=== PATIENT | male | born 1960 | race Caucasian/White ===

== ENCOUNTER 2019-08-17 11:19 | Emergency (ER) | payer MEDICAID, SELFPAY ==
[2019-08-17 11:24] VITALS: BP 144/81; PULSE 80; RESP 18; TEMP 36.5; O2SAT 98; BMI 21.6
[2019-08-17 11:34] VITALS: PULSE 86
--- NOTE | 2019-08-17 11:46 | PC.NURSE ---
POLO Scott in room with patient performing assessment. Plan to order xray to rule out osteomyelitits and then address pain. Patient verbalized understanding.
--- NOTE | 2019-08-17 11:48 | XRR_ITS ---
PROCEDURE INFORMATION: Exam: XR Left Ankle Exam date and time: 08/17/2019 12:14 PM Age: 58 years old Clinical indication: Prior surgery; Surgery type: Left ankle surgery with plate and screws. 5 weeks ago; Patient HX: C/O pain lt ankle laterally. Has cast on TECHNIQUE: Imaging protocol: XR Left ankle. Views: 3 or more views. COMPARISON: CR Ankle 3 views, LEFT* [id number] 06/17/2019 7:01 AM FINDINGS: Bones/joints: Overlying cast obscures fine bony detail. Status post ORIF of distal left fibular fracture with improved fracture alignment. Soft tissues: Unremarkable. XR/XR ankle LT min 3V* [id number] IMPRESSION: Status post ORIF of distal left fibular fracture with improved fracture alignment.
--- NOTE | 2019-08-17 11:49 | W.ED.EXTPRO ---
HPI - Extremity Problem General: Chief complaint: Extremity Problem,Nontraumatic Stated complaint: L foot pain, patient comes in for left ankle pain, patient reports he is to see orthopedist Monday in [place] for recheck on fracture repair, Patient reports running out of medication on Monday but could not get refill due to not able to go to [place]. Patient appears well. Patient appears in no distress. Time Seen by Provider: 08/17/19 11:37 Review of Systems General: Reports: 10 or more systems reviewed and unremarkable except in HPI and below Musc: Reports: joint pain (left ankle) PFSH ED PFSH: Statuses (acute, chronic, etc) shown below reflect problem list status as previously entered and may not be historically accurate Social History Smoking and tobacco status: current every day smoker Physical Exam Const: COMMON NORMALS: no apparent distress and oriented x3 GENERAL APPEARANCE: cooperative HENMT: COMMON NORMALS: normocephalic, external ears normal, EAC's normal, TM's normal bilaterally and external nose normal HEAD & SCALP: normal to inspection and normocephalic FACE & SINUS: normal facial exam NOSE: external nose normal GENERAL EAR: hearing grossly impaired EXTERNAL EAR: Yes external ears normal EXTERNAL AUDITORY CANAL: EAC's normal TYMPANIC MEMBRANE: TM's normal bilaterally MOUTH: oral and palatal mucosa normal THROAT: posterior oropharynx normal Eye: COMMON NORMALS: PERRL and EOMs intact bilaterally PUPIL: Yes PERRL Neck/C-Spine: COMMON NORMALS: full ROM and no lymphadenopathy Lymph: LYMPHATIC: no lymphedema noted Chest: COMMONS NORMALS: inspection of chest normal and palpation of chest normal Resp: COMMON NORMALS: normal respiratory effort and clear to auscultation bilaterally AUSCULTATION: clear to auscultation bilaterally Cardio: COMMON NORMALS: regular rate and regular rhythm RATE: regular rate RHYTHM: regular rhythm GI: COMMON NORMALS: normal to inspection, nondistended, normoactive bowel sounds and non-tender : COMMON NORMALS: Yes no CVA tenderness BLADDER/KIDNEY EXAM: Yes no CVA tenderness Back/Pelvis: COMMON NORMALS: no CVA tenderness and thoracic and lumbar spine normal to inspection Extremity: COMMON NORMALS: normal to inspection (cast to left lower leg and foot, no abnormal swelling or redness) GENERAL: No edema Neuro: COMMON NORMALS: oriented x3, moves all extremities and no focal motor deficits Psych: COMMON NORMALS: mental status grossly normal and cooperative Skin: COMMON NORMALS: no rashes or lesions noted GENERAL SKIN EXAM: no rashes or lesions noted Course Vital Signs: Vital signs: Vital Signs Temperature 97.7 F 08/17/19 11:24 Pulse Rate 86 08/17/19 11:34 Respiratory Rate 18 08/17/19 11:24 Blood Pressure 144/81 08/17/19 11:24 Pulse Oximetry 98 08/17/19 11:24 MDM - Extremity (Nontraumatic) MDM Narrative: Medical decision making narrative: Patient presents with left lower leg pain. Patient had a fracture to his left lower extremity and had to have surgical repair. Patient reports running out of his pain medication yesterday and has continued discomfort. Patient was unable to go to [place] for a refill on his pain medication but is to follow-up with orthopedics on Monday. Patient appears well. Exam notes no obvious redness or increased swelling to the lower extremity. Respirations are even lungs are clear auscultation. Differential diagnosis includes cellulitis, osteomyelitis, DVT, traumatic arthritis, lower extremity pain. Review exam with patient recommended treatment with need for follow-up with primary care/orthopedics for further refills. Patient agreed to plan. Imaging Data^: Other Xray: My impression: Left ankle xray, note healing fracture with no bone deteoration or other concerns Discharge Plan Discharge Patient Disposition: Home, Self-Care Clinical Impression: Leg pain, left Fracture of left leg Qualifiers: Encounter type: subsequent encounter Fracture type: closed Fracture healing: with routine healing Qualified Code(s): S82.92XD - Unspecified fracture of left lower leg, subsequent encounter for closed fracture with routine healing Condition: Stable Prescriptions: New hydrocodone-acetaminophen 5-325 mg tablet 1 tab PO Q6H PRN (Reason: pain) Qty: 10 RF: 0 No Action Pending RF: 0 Referrals: Gail Callaway MD [Primary Care Provider] - Discharge Diet: Usual diet Discharge Activity: Resume usual activity Coding Level of Care Code ED Electrophysiologist for Johnson Fwfilomena Exam Problem Focused
[2019-08-17 12:26] VITALS: BP 122/78; PULSE 75; RESP 18; O2SAT 97
== END 2019-08-17 12:42 | disposition home or self-care (01) ==
PROVIDERS: Emergency Provider Emergency Medicine; Family Provider Internal Medicine; PCP Internal Medicine
DX: M79.605 Pain in left leg (principal); F17.210 Nicotine dependence, cigarettes, uncomplicated
CPT/HCPCS: 73610; 99281

== ENCOUNTER 2019-09-08 10:31 | Emergency (ER) | payer MEDICAID, SELFPAY ==
[2019-09-08 10:33] VITALS: BP 123/83; PULSE 80; RESP 16; TEMP 36.6; O2SAT 96; BMI 20.9
--- NOTE | 2019-09-08 10:34 | ED_ITS ---
HPI - Back Pain/Injury General: Chief Complaint: Back Pain/Injury Stated Complaint: BACK PAIN Time Seen by Provider: 09/08/19 10:34 Source: patient Mode of arrival: ambulatory Limitations: no limitations History of Present Illness: HPI Narrative: Patient is a 58-year-old male who presents to ED today with complaints of right-sided back pain that began today; patient states he does have a chronic history of neck and back pain but states this felt different; patient is ambulatory without difficulty here in the ED; he denies any radicular symptoms MD elicited complaint: back pain Pertinent past history: prior back pain Onset (ago): hour(s) Timing: constant Similar Symptoms Previously: Yes Location: lumbar spine, thoracic spine and right lower back Radiation: none Exacerbating factors: movement Relieving factors: immobilization Associated symptoms: Reports no associated symptoms; Deny abdominal pain, chills, fever(s), nausea, syncope or vomiting Review of Systems Const: Denies: fever or chills Card: Denies: chest pain, palpitations, irregular heart rhythm, edema, lightheadedness, syncope or pre-syncope Resp: Denies: shortness of breath, productive cough, coughing up blood or chest congestion GI: Denies: abdominal pain, nausea or vomiting Musc: Reports: neck pain and back pain; Denies: extremity pain or extremity swelling PFSH ED PFSH: Statuses (acute, chronic, etc) shown below reflect problem list status as previously entered and may not be historically accurate Social History Smoking and tobacco status: current every day smoker Physical Exam Const: COMMON NORMALS: no apparent distress, average body habitus, oriented x3, no limitations, healthy appearing, alert and well nourished Resp: COMMON NORMALS: normal respiratory effort and clear to auscultation bilaterally AUSCULTATION: clear to auscultation bilaterally Cardio: COMMON NORMALS: regular rate, regular rhythm, no gallops, no clicks, no murmurs and no rub RATE: regular rate RHYTHM: regular rhythm : COMMON NORMALS: Yes no CVA tenderness BLADDER/KIDNEY EXAM: Yes no CVA tenderness Back/Pelvis: COMMON NORMALS: no CVA tenderness OTHER: TTP to R paraspinal muscles of lower thoracic/upper lumbar; palpation reproduces pts pain Neuro: COMMON NORMALS: oriented x3, no focal motor deficits and no sensory deficits noted SENSORIUM/ORIENTATION: Yes alert Course Vital Signs: Vital signs: Vital Signs Temperature 97.9 F 09/08/19 10:33 Pulse Rate 85 09/08/19 11:34 Respiratory Rate 16 09/08/19 11:34 Blood Pressure 132/86 09/08/19 11:34 Pulse Oximetry 96 09/08/19 11:34 MDM - Back Pain/Injury MDM Narrative: Medical decision making narrative: pt reports improvement in pain after toradol/norflex Lab Data: Labs: Lab Results 09/08/19 Range/Units 10:47 Urine Color Yellow (Yellow) Urine Appearance Clear (CLEAR) Urine pH 7 (5-7) Ur Specific Gravit y 1.000 L (1.005-1.030) Urine Protein Neg (Negative) Urine Glucose (UA) Norm (Normal) Urine Ketones Negative (Negative) Urine Occult Blood Neg (Negative) Urine Nitrate Negative (Negative) Urine Bilirubin Neg (NEGATIVE) Urine Urobilinogen Norm (Negative) mg/dL Ur Leukocyte Marguerite ase Negative (Negative) Discharge Plan Discharge Patient Disposition: Home, Self-Care Clinical Impression: Strain of back Qualifiers: Encounter type: initial encounter Qualified Code(s): S39.012A - Strain of muscle, fascia and tendon of lower back, initial encounter Condition: Stable Prescriptions: New prednisone 10 mg tablet 60 mg PO DAILY 5 Days Qty: 30 RF: 0 cyclobenzaprine 10 mg tablet 10 mg PO TID Qty: 14 RF: 0 No Action Pending RF: 0 hydrocodone-acetaminophen 5-325 mg tablet 1 tab PO Q6H PRN (Reason: pain) Qty: 10 RF: 0 Discharge Orders: Discharge Order (Routine); Ordered 09/08/19 Ordered By: Beth Amaro Referrals: Gail Callaway MD [Primary Care Provider] - Discharge Diet: Usual diet Discharge Activity: Resume usual activity Patient Instructions: Low Back Strain (ED) Activity Restrictions/Additional Instructions: Follow up with primary care this week for continued symptoms. Discharge Date/Time: 09/08/19 11:35 Coding Level of Care Code ED Media Production Manager for Johnson Rowley
[2019-09-08] MEDS: ketorolac 60 mg/2 mL INJ IM (10:45)
[2019-09-08] MEDS: orphenadrine 30 mg/mL Inj 2 mL 60 MG IM (10:46)
[2019-09-08 10:54] LABS: Add Urine Microscopic? NO
[2019-09-08 11:10] LABS: Bilirubin Urine Neg (NEGATIVE); Blood Urine Neg (Negative); Glucose Urine UA Norm (Normal); Ketones Urine Negative (Negative); Nitrate Urine Negative (Negative); Protein Urine Neg (Negative); Urine Appearance Clear (CLEAR); Urine Color Yellow (Yellow); pH Urine 7 (5-7)
[2019-09-08 11:11] LABS: Leukocyte Esterase Urine Negative (Negative); Urobilinogen Urine Norm (Negative)
[2019-09-08 11:34] VITALS: BP 132/86; PULSE 85; RESP 16; O2SAT 96
== END 2019-09-08 11:35 | disposition home or self-care (01) ==
PROVIDERS: Emergency Provider Physician Assistant; Family Provider Internal Medicine; PCP Internal Medicine
DX: S39.012A Strain of muscle, fascia and tendon of lower back, initial encounter (principal); X58.XXXA Exposure to other specified factors, initial encounter; F17.210 Nicotine dependence, cigarettes, uncomplicated
CPT/HCPCS: 81003; 96372; 99281; J1885; J2360

== ENCOUNTER 2019-10-09 10:22 | Emergency (ER) | payer MEDICAID, SELFPAY ==
[2019-10-09 10:47] VITALS: BP 171/100; PULSE 97; RESP 16; TEMP 36.9; O2SAT 100; BMI 20.9
== END 2019-10-09 12:57 | disposition left against medical advice (07) ==
PROVIDERS: Emergency Provider Physician Assistant; Family Provider Internal Medicine; PCP Internal Medicine
DX: M79.662 Pain in left lower leg (principal); M79.672 Pain in left foot; F17.200 Nicotine dependence, unspecified, uncomplicated; Z53.21 Procedure and treatment not carried out due to patient leaving prior to being seen by health care provider
CPT/HCPCS: 99281

== ENCOUNTER → 2019-10-17 09:33 | Outpatient (BNVA) | payer MEDICAID, SELFPAY | PROVIDERS: Family Provider Internal Medicine; PCP Internal Medicine; Visit Provider Psychiatry & Neurology Psychiatry | DX: F33.42 Major depressive disorder, recurrent, in full remission (principal); F10.21 Alcohol dependence, in remission; F17.210 Nicotine dependence, cigarettes, uncomplicated | CPT/HCPCS: 99213 ==

== ENCOUNTER → 2020-01-15 07:33 | Outpatient (BNVA) | payer MEDICAID, SELFPAY | PROVIDERS: Family Provider Internal Medicine; PCP Internal Medicine; Visit Provider Psychiatry & Neurology Psychiatry | DX: F33.42 Major depressive disorder, recurrent, in full remission (principal); F10.21 Alcohol dependence, in remission; F17.210 Nicotine dependence, cigarettes, uncomplicated | CPT/HCPCS: 99213 ==

== ENCOUNTER 2020-02-16 23:12 | Emergency (ER) | payer MEDICAID, SELFPAY ==
[2020-02-16 23:16] VITALS: BP 135/79; PULSE 108; RESP 22; TEMP 36.8; O2SAT 94; BMI 22.2
--- NOTE | 2020-02-16 23:29 | PC.NURSE ---
patient states he was laying down getting ready for bed when his abdomen started hurting. patient states the pain is a terrible ache patient states he does drink alcohol frequently since last month. patient states he had 12 beers last night and 7 beers today. patient states he right upper quadrant of his abdomen hurts.
[2020-02-16 23:34] VITALS: BP 125/95; PULSE 102; RESP 14; O2SAT 94
--- NOTE | 2020-02-16 23:42 | XR_ITS ---
WS: [id number] PORTABLE CHEST HISTORY: cough COMPARISON: 04/16/2019 Hyperinflated lungs with emphysema. No pneumonia. Normal vasculature. No pleural effusion or pneumoth orax. Cardiac size: Normal. Mediastinum/Aorta: Normal mediastinum. No osseous abnormality seen. XR/XR chest 1V portable [id number] IMPRESSION: Chronic emphysema.
--- NOTE | 2020-02-16 23:50 | W.ED.ABDPA2 ---
HPI - Abdominal Pain General: Chief Complaint: Abdominal Pain Stated Complaint: ABD PAIN/ ETOH Time Seen by Provider: 02/16/20 23:29 History of Present Illness: HPI narrative: Patient is a heavy drinker comes in by ambulance with complaint of right upper quadrant pain times couple days does have a cough denies any other problems MD elicited complaint: abdominal pain Pertinent past history: other (Alcoholism) Onset (ago): day(s) Pain Consistency: constant Location: RUQ Severity: moderate Quality: cramping and aching Radiation: none Context: history of similar episodes Associated Symptoms: Reports other (Cough and alcoholism); Denies chills and fever(s) Review of Systems Const: Denies: fever(s), chills or body aches Eyes: Denies: change in vision or blurry vision ENMT: Denies: throat pain or nasal congestion Card: Denies: chest pain or dyspnea on exertion Resp: Denies: dyspnea, productive cough or non-productive cough GI: Reports: abdominal pain and other (Cough and alcoholism) : Denies: difficulty urinating Musc: Denies: extremity pain Skin/Breast: Denies: rash Neuro: Denies: headache(s) Psych: Denies: anxiety or depression Jason/Lymph: Denies: easy bruising PFSH ED PFSH: Medical History Alcohol dependence in early full remission Cigarette nicotine dependence Major depression, recurrent, full remission Social History Smoking and tobacco status: current every day smoker Physical Exam Const: COMMON NORMALS: no acute distress, average body habitus and patient oriented x3 HENMT: COMMON NORMALS: normocephalic HEAD & SCALP: normal to inspection and normocephalic FACE & SINUS: normal facial exam Eye: COMMON NORMALS: conjunctivae normal GENERAL EYE: appearance normal, both eyes and all related structures CONJUNCTIVA: Yes conjunctivae normal Neck/C-Spine: COMMON NORMALS: no JVD Chest: COMMONS NORMALS: normal inspection of the chest Resp: COMMON NORMALS: normal respiratory effort and clear to auscultation bilaterally AUSCULTATION: clear to auscultation bilaterally Cardio: COMMON NORMALS: no JVD, regular rate and regular rhythm RATE: regular rate RHYTHM: regular rhythm GI: COMMON NORMALS: Normal to inspection, nondistended, normoactive bowel sounds present AUSCULTATION: Yes normoactive bowel sounds PALPATION: Yes Tenderness to palpation present (GI) Details: RUQ Extremity: COMMON NORMALS: normal to inspection and full ROM Neuro: COMMON NORMALS: patient oriented x3 Course Vital Signs: Vital signs: Vital Signs Temperature 98.2 F 02/16/20 23:16 Pulse Rate 102 H 02/16/20 23:34 Respiratory Rate 14 02/16/20 23:34 Blood Pressure 125/95 02/16/20 23:34 Pulse Oximetry 94 02/16/20 23:34 Discharge Plan Discharge Prescriptions: No Action loratadine [Claritin] 10 mg tablet 10 mg PO DAILY RF: 0 fluticasone propionate 50 mcg/actuation spray,suspension 1 spray INTRANASAL DAILY RF: 0 tramadol 50 mg tablet 50 mg PO BID RF: 0 citalopram [Celexa] 40 mg tablet 40 mg PO QAM Qty: 30 RF: 2 hydroxyzine HCl 50 mg tablet 50 mg PO BID Qty: 30 RF: 2 quetiapine [Seroquel XR] 150 mg tablet extended release 24 hr 150 mg PO .QHS Qty: 30 RF: 2 Coding Level of Care Code ED Television Servicer for Martínezg Halley
[2020-02-17 00:02] VITALS: BP 129/75; PULSE 122; RESP 16; O2SAT 93
[2020-02-17 00:02] LABS: Basophils # 0.1 10^3/uL (0.0-0.1); Eosinophils # 0.1 10^3/uL (0.0-0.8); Eosinophils % 1.2 %; Hematocrit 38.7 % (42.0-52.0); Hemoglobin 13.2 g/dL (11.7-16.6); Lymphocytes # 1.4 10^3/uL (0.8-4.8); Lymphocytes % 16.5 %; Mean Corpuscular HGB Conc 34.1 g/dL (30.0-36.0); Mean Corpuscular Hemoglobin 31.4 pg (28.0-34.0); Mean Corpuscular Volume 92.1 fL (80-94); Mean Platelet Volume 8.7 fL (7.4-10.4); Monocytes # 0.7 10^3/uL (0.2-0.9); Neutrophils % 73.2 %; Nucleated Red Blood Cells % 0 %; Platelet Count 253 10^3/cmm (130-400); Red Cell Distribution Width 14.5 % (12.1-15.1); White Blood Count 8.2 10^3/uL (4.0-10.0)
[2020-02-17 00:15] LABS: Alanine Aminotransferase 23 U/L (0-41); Albumin Level 4.4 g/dL (3.5-5.2); Alkaline Phosphatase 62 IU/L (40-130); Anion Gap 21.5 (5-19); Aspartate Amino Transferase 69 U/L (0-40); Blood Urea Nitrogen 3 mg/dL (6-20); Carbon Dioxide 23 mmol/L (22-29); Chloride 88 mmol/L (98-107); Globulin 2.6 g/dL (1.3-4.6); Glomerular Filtration Rate 116.2 mL/min (90-130); Glucose 135 mg/dL (65-115); Osmolality Calculated 266 mOsm/kg (285-295); Potassium 3.5 mmol/L (3.5-5.1); Sodium 129 mmol/L (136-145); Total Bilirubin 0.3 mg/dL (0.15-1.2)
[2020-02-17] MEDS: sodium chloride 0.9% 1,000 ML 999 ML IV (01:01)
[2020-02-17] MEDS: ketorolac 30 mg/mL INJ IVP (01:02)
[2020-02-17 01:03] VITALS: BP 117/70; PULSE 91; RESP 16; O2SAT 93
[2020-02-17] MEDS: multivitamin therapeutic Tablet 1 TAB PO (01:21)
[2020-02-17 01:34] LABS: Vitamin B12 404 pg/mL (232-1245)
[2020-02-17 01:43] VITALS: BP 122/70; PULSE 88; RESP 16; O2SAT 93
== END 2020-02-17 01:46 | disposition home or self-care (01) ==
PROVIDERS: Emergency Provider Nurse Practitioner Family; PCP Internal Medicine
DX: R10.9 Unspecified abdominal pain (principal); F17.210 Nicotine dependence, cigarettes, uncomplicated
CPT/HCPCS: 12345; 71045; 80053; 82607; 85025; 96361; 96374; 96375; 99283; J1885; J3411; J7030

== ENCOUNTER 2020-02-17 13:00 | Emergency (ER) | payer MEDICAID, SELFPAY ==
[2020-02-17 13:01] VITALS: BP 159/95; PULSE 105; RESP 18; TEMP 36.4; O2SAT 97; BMI 21.4
--- NOTE | 2020-02-17 13:06 | ECG_ITS ---
[facility] Test Date: 2020-02-17 Pat Name: Calos Dahl Department: Room: Gender: Male Enrobing Machine Corder: : 1960 Requested By: Whitney Mendoza Order Number: [id number] Lisa MD: Donita Orlando M.D. Measurements Intervals [place] Rate: 96 P: 64 OR: 115 QRS: 66 QRSD: 103 T: 74 QT: 355 QTc: 450 Interpretive Statements SINUS RHYTHM WITH SHORT OR INTERVAL Compared to ECG 04/16/2019 15:38:42 Short OR interval now present Myocardial infarct finding no longer present Electronically Signed On 02-17-2020 21:42:55 CDT by Donita Orlando M.D. [id number] f
--- NOTE | 2020-02-17 13:07 | W.ED.SOB ---
HPI - SOB/Dyspnea General: Chief Complaint: Shortness of Breath/Dyspnea Stated Complaint: SOB, weakness Time Seen by Provider: 02/17/20 13:01 Source: patient and EMS Mode of arrival: EMS Limitations: no limitations History of Present Illness: HPI Narrative: 89-year-old male who states he has been having shortness of breath for days. He states he is also had epigastric abdominal pain as well. Patient seen here yesterday had a normal work-up and discharge. He states that since then his dyspnea is worsened. He states he also has been drinking daily and smoking since his mother in December. He denies any chest pain. He denies any fevers. Denies any worsening or improving factors. Associated symptoms: Reports abdominal pain; Deny chest pain or fever(s) Review of Systems Const: Denies: fever(s), chills, body aches or change in appetite Eyes: Denies: blurry vision or eye discomfort ENMT: Denies: throat pain or dental pain Card: Denies: chest pain Resp: Reports: dyspnea GI: Reports: abdominal pain : Denies: dysuria Musc: Denies: neck pain or back pain Skin/Breast: Denies: rash Neuro: Denies: headache(s) Psych: Denies: depression Jason/Lymph: Denies: easy bruising All/Imm: Denies: urticaria PFSH ED PFSH: Medical History Alcohol dependence in early full remission Cigarette nicotine dependence Major depression, recurrent, full remission Social History Smoking and tobacco status: current every day smoker Physical Exam Const: COMMON NORMALS: no acute distress, patient oriented x3 and healthy appearing HENMT: COMMON NORMALS: normocephalic and atraumatic HEAD & SCALP: normocephalic and atraumatic Eye: COMMON NORMALS: Equal, round and reactive pupils present and EOMs intact bilaterally PUPIL: Yes Equal, round and reactive pupils present Neck/C-Spine: COMMON NORMALS: full ROM and supple Chest: COMMONS NORMALS: normal inspection of the chest and normal palpation of entire chest wall Resp: COMMON NORMALS: normal respiratory effort, No retractions and No use of accessory muscles AUSCULTATION: wheezes Cardio: COMMON NORMALS: regular rate, regular rhythm and No murmurs present (Cardio) RATE: regular rate RHYTHM: regular rhythm GI: COMMON NORMALS: Normal to inspection, nondistended, normoactive bowel sounds present, Soft to palpation, non-tender and no masses PALPATION: Yes Soft to palpation Extremity: COMMON NORMALS: normal to inspection and full ROM Neuro: COMMON NORMALS: patient oriented x3, moves all extremities and no focal motor deficits Psych: COMMON NORMALS: mental status grossly normal, Normal thought process present and cooperative THOUGHT PROCESS: Normal thought process present Skin: COMMON NORMALS: no rashes or lesions noted and no wounds GENERAL SKIN EXAM: no rashes or lesions noted Course Vital Signs: Vital signs: Vital Signs Temperature 97.5 F L 02/17/20 13:01 Pulse Rate 88 02/17/20 14:58 Respiratory Rate 16 02/17/20 14:58 Blood Pressure 141/95 02/17/20 14:58 Pulse Oximetry 93 02/17/20 14:58 MDM - SOB/Dyspnea MDM Narrative: Medical decision making narrative: Patient presents here with shortness of breath. Patient while here state he felt improved and refused CT scan of his abdomen and chest. Patient's initial labs here are normal. Did try to convince patient to stay for CT scans but he refused. Patient has medical decision-making capacity and understands risk. Patient signed out AGAINST MEDICAL ADVICE. Lab Data: Labs: Lab Results 02/17/20 02/17/20 02/17/20 Range/Units 13:20 13:20 13:20 WBC 7.4 (4.0-10.0) 10^3/ uL RBC 3.79 L (4.1-5.3) 10^6/u L Hgb 11.9 (11.7-16.6) g/dL Hct 34.6 L (42.0-52.0) % MCV 91.3 (80-94) fL MCH 31.4 (28.0-34.0) pg MCHC 34.4 (30.0-36.0) g/dL RDW 14.3 (12.1-15.1) % Plt Count 239 (130-400) 10^3/c mm MPV 8.9 (7.4-10.4) fL Neut % (Auto) 66.6 % Lymph % (Auto) 16.8 % [place] % (Auto) 11.6 % Eos % (Auto) 4.2 % Baso % (Auto) 0.7 % Neut # (Auto) 4.9 (1.8-7.7) 10^3/u L Lymph # (Auto) 1.3 (0.8-4.8) 10^3/u L [place] # (Auto) 0.9 (0.2-0.9) 10^3/u L Eos # (Auto) 0.3 (0.0-0.8) 10^3/u L Baso # (Auto) 0.1 (0.0-0.1) 10^3/u L Nucleated RBC % (a uto) 0 % Nucleated RBCs # 0.0 /100WBC D-Dimer 0.72 H (0-0.59) ug/mIFE U Sodium 127 L (136-145) mmol/L Potassium 3.9 (3.5-5.1) mmol/L Chloride 90 L (98-107) mmol/L Carbon Dioxide 25 (22-29) mmol/L Anion Gap 15.9 (5-19) BUN 3 L (6-20) mg/dL Creatinine 0.7 (0.7-1.2) mg/dL GFR Calculation 116.2 (90-130) mL/min Glucose 116 H (65-115) mg/dL Calculated Osmolal ity 261 L (285-295) mOsm/k g Calcium 8.7 (8.5-10.5) mg/dL Total Bilirubin 0.4 (0.15-1.2) mg/dL AST 68 H (0-40) U/L ALT 24 (0-41) U/L Alkaline Phosphata se 54 (40-130) IU/L NT-Pro-B Natriuret Pep 62 (0-125) pg/mL Total Protein 5.8 L (6.6-8.7) g/dL Albumin 4.0 (3.5-5.2) g/dL Globulin 1.8 (1.3-4.6) g/dL Lipase 16 (13-60) U/L EKG Data^: EKG 1: Attestation: I personally reviewed and interpreted this EKG as follows: EKG Interpretation Date: 02/17/20 EKG interpretation time: 13:24 Interpretation: Normal sinus rhythm with no ST or T wave abnormalities heart rate 96 QRS 103 QTC 409 Discharge Plan Discharge Patient Disposition: Left Against Medical Advice Clinical Impression: Acute dyspnea Prescriptions: No Action loratadine [Claritin] 10 mg tablet 10 mg PO DAILY RF: 0 fluticasone propionate 50 mcg/actuation spray,suspension 1 spray INTRANASAL DAILY RF: 0 Celexa 40 mg tablet 40 mg PO DAILY RF: 0 hydroxyzine HCl 50 mg tablet 50 mg PO BID PRN (Reason: Anxiety) RF: 0 Seroquel XR 150 mg tablet extended release 24 hr 150 mg PO BEDTIME RF: 0 Referrals: Gail Callaway MD [Primary Care Provider] - Interventions: ED Discharge Assessment Last Done: 02/17/20 15:13 ED Charges Last Done: 02/17/20 15:13 Discharge Date/Time: 02/17/20 15:13 Coding Level of Care Code ED Nursing Aide for Martínezg Fwd Exam Comprehensive
[2020-02-17 13:21] VITALS: BP 159/95; PULSE 101; RESP 18; O2SAT 98
[2020-02-17 13:28] LABS: Basophils # 0.1 10^3/uL (0.0-0.1); Basophils % 0.7 %; Eosinophils # 0.3 10^3/uL (0.0-0.8); Eosinophils % 4.2 %; Hematocrit 34.6 % (42.0-52.0); Hemoglobin 11.9 g/dL (11.7-16.6); Lymphocytes # 1.3 10^3/uL (0.8-4.8); Lymphocytes % 16.8 %; Mean Corpuscular HGB Conc 34.4 g/dL (30.0-36.0); Mean Corpuscular Hemoglobin 31.4 pg (28.0-34.0); Mean Corpuscular Volume 91.3 fL (80-94); Mean Platelet Volume 8.9 fL (7.4-10.4); Monocytes # 0.9 10^3/uL (0.2-0.9); Monocytes % 11.6 %; Neutrophils # 4.9 10^3/uL (1.8-7.7); Neutrophils % 66.6 %; Nucleated Red Blood Cells % 0 %; Platelet Count 239 10^3/cmm (130-400); Red Blood Count 3.79 10^6/uL (4.1-5.3); Red Cell Distribution Width 14.3 % (12.1-15.1); White Blood Count 7.4 10^3/uL (4.0-10.0)
[2020-02-17 13:45] LABS: D Dimer 0.72 ug/mIFEU (0-0.59)
[2020-02-17 13:55] VITALS: BP 153/89; PULSE 92; RESP 17; O2SAT 96
[2020-02-17 13:58] LABS: Alanine Aminotransferase 24 U/L (0-41); Alkaline Phosphatase 54 IU/L (40-130); Anion Gap 15.9 (5-19); Aspartate Amino Transferase 68 U/L (0-40); Blood Urea Nitrogen 3 mg/dL (6-20); Calcium 8.7 mg/dL (8.5-10.5); Carbon Dioxide 25 mmol/L (22-29); Chloride 90 mmol/L (98-107); Globulin 1.8 g/dL (1.3-4.6); Glomerular Filtration Rate 116.2 mL/min (90-130); Glucose 116 mg/dL (65-115); Lipase 16 U/L (13-60); NT Pro B Type Natriuretic Pept 62 pg/mL (0-125); Osmolality Calculated 261 mOsm/kg (285-295); Potassium 3.9 mmol/L (3.5-5.1); Sodium 127 mmol/L (136-145); Total Bilirubin 0.4 mg/dL (0.15-1.2); Total Protein 5.8 g/dL (6.6-8.7)
[2020-02-17 14:20] VITALS: PULSE 88; RESP 16; O2SAT 99
[2020-02-17] MEDS: ipratropium-albuterol 3 mL Neb INHALATION (14:26)
[2020-02-17 14:58] VITALS: BP 141/95; PULSE 88; RESP 16; O2SAT 93
[2020-02-17 15:13] VITALS: BP 125/84; PULSE 96; RESP 17; O2SAT 97
== END 2020-02-17 15:13 | disposition left against medical advice (07) ==
LOC: ER 13:46
PROVIDERS: Emergency Provider Emergency Medicine; PCP Internal Medicine
DX: R06.00 Dyspnea, unspecified (principal); Z53.21 Procedure and treatment not carried out due to patient leaving prior to being seen by health care provider; F17.210 Nicotine dependence, cigarettes, uncomplicated
CPT/HCPCS: 12345; 36415; 80053; 83690; 83880; 85025; 85378; 93005; 94640; 96374; 99283; 99284; J2930

== ENCOUNTER 2020-02-17 22:03 | Emergency (ER) | payer MEDICAID, SELFPAY ==
--- NOTE | 2020-02-17 22:05 | CTR_ITS ---
PROCEDURE INFORMATION: Exam: CT Angiography Chest With Contrast Exam date and time: 02/17/2020 10:43 PM Age: 59 years old Clinical indication: Bloating; Abdominal pain; Generalized; Dyspnea; Chest pain; Type not specified TECHNIQUE: Imaging protocol: Computed tomographic angiography of the chest with intravenous contrast. 3D rendering: MIP and/or 3D reconstructed images were created by the technologist. Radiation optimization: All CT scans at this facility use at least one of these dose optimization techniques: automated exposure control; mA and/or kV adjustment per patient size (includes targeted exams where dose is matched to clinical indication); or iterative reconstruction. Contrast material: OMNI 350; Contrast volume: 95 ml; Contrast route: INTRAVENOUS (IV); COMPARISON: CT chest w con* [id number] 04/18/2014 1:57 PM RADIATION DOSE METRICS: Total DLP (mGy-cm): 1023.92 FINDINGS: Pulmonary arteries: There is no evidence of filling defects within the pulmonary arterial circulation to suggest pulmonary embolism. Aorta: Unremarkable. No aortic aneurysm. No aortic dissection. Lungs: There is moderate centrilobular emphysema with an upper lobe predominance. Pleural space: There is some focal apical pleural scarring. There is also some focal scarring in the mid right upper lobe not significantly changed from 2014. Heart: Unremarkable. No cardiomegaly. No pericardial effusion. Mediastinal space: There is a small hiatal hernia. There is mild thickening of the distal esophagus which could represent some esophagitis. Lymph nodes: Unremarkable. No enlarged lymph nodes. Bones/joints: Unremarkable. No acute fracture. Soft tissues: Unremarkable. IMPRESSION: 1. Mild pulmonary emphysema. 2. No evidence of pulmonary embolism. 3. Small hiatus hernia 4. Thickening of the distal esophagus which could represent some esophagitis PROCEDURE INFORMATION: Exam: CT Abdomen And Pelvis With Contrast Exam date and time: 02/17/2020 10:43 PM Age: 59 years old Clinical indication: Bloating; Abdominal pain; Generalized; Dyspnea; Chest pain; Type not specified TECHNIQUE: Imaging protocol: Computed tomography of the abdomen and pelvis with intravenous contrast. Radiation optimization: All CT scans at this facility use at least one of these dose optimization techniques: automated exposure control; mA and/or kV adjustment per patient size (includes targeted exams where dose is matched to clinical indication); or iterative reconstruction. Contrast material: OMNI 350; Contrast volume: 95 ml; Contrast route: INTRAVENOUS (IV); COMPARISON: CT chest w con* [id number] 04/18/2014 1:57 PM RADIATION DOSE METRICS: Total DLP (mGy-cm): 1023.92 FINDINGS: Liver: There is a diffuse decrease in hepatic parenchymal density, consistent with mild fatty infiltration. There is no focal abnormality within the liver. Gallbladder and bile ducts: Normal. No calcified stones. No ductal dilation. Pancreas: The pancreas is normal. Spleen: The spleen is normal. Adrenals: The adrenal glands are normal. Kidneys and ureters: There is moderate hydronephrosis. Stomach and bowel: There is no evidence of colitis/diverticulitis. Appendix: Not identified Intraperitoneal space: Unremarkable. No free air. No significant fluid collection. Vasculature: The aorta demonstrates moderate atherosclerotic calcification. There is no evidence of an abdominal aortic aneurysm. Lymph nodes: Unremarkable. No enlarged lymph nodes. Bladder: Urinary bladder is markedly dilated with a volume of over 1300 cc. Reproductive: The prostate gland demonstrates nonspecific parenchymal calcifications. The prostate demonstrates mild nonspecific enlargement. The seminal vesicles are normal. Bones/joints: Unremarkable. No acute fracture. Soft tissues: Unremarkable. CT/CT angio chest w abd pel w con IMPRESSION: 1. Markedly dilated urinary bladder causing bilateral hydronephrosis. 2. Mild fatty liver Radiation Dose CTDIVOL = (mGy): DLP = 1023.92~1023.92 (mGy-cm)
[2020-02-17 22:10] VITALS: BP 160/92; PULSE 100; RESP 18; TEMP 37.1; O2SAT 96; BMI 21.4
--- NOTE | 2020-02-17 22:29 | ED_ITS ---
HPI - Abdominal Pain General: Chief Complaint: Abdominal Pain Stated Complaint: ABD PAIN Time Seen by Provider: 02/17/20 22:14 History of Present Illness: HPI narrative: Patient arrives via ambulance with complaint of belly pain. Patient left AMA earlier refused test walked out. Patient continues to drink regularly. Denies any other problems denies any injury since he left here no nausea and vomiting fever chills. MD elicited complaint: abdominal pain Pertinent past history: other (Alcoholism) Location: Diffuse Severity: moderate Quality: aching Migration to: no migration Exacerbating factors: nothing Relieving factors: nothing Associated Symptoms: Reports bloating; Denies chills and fever(s) Review of Systems Const: Denies: fever(s), chills or body aches Eyes: Denies: change in vision or blurry vision ENMT: Denies: throat pain or nasal congestion Card: Denies: chest pain or dyspnea on exertion Resp: Denies: dyspnea, productive cough or non-productive cough GI: Reports: abdominal pain and bloating : Denies: difficulty urinating Musc: Denies: extremity pain Skin/Breast: Denies: rash Neuro: Denies: headache(s) Psych: Denies: anxiety or depression Jason/Lymph: Denies: easy bruising PFSH ED PFSH: Medical History (Updated 02/17/20 @ 15:16 by Whitney Mendoza MD) Alcohol dependence in early full remission Cigarette nicotine dependence Major depression, recurrent, full remission Social History Smoking and tobacco status: current every day smoker Physical Exam Const: COMMON NORMALS: no acute distress, average body habitus and patient oriented x3 HENMT: COMMON NORMALS: normocephalic HEAD & SCALP: normal to inspection and normocephalic FACE & SINUS: normal facial exam Eye: COMMON NORMALS: conjunctivae normal GENERAL EYE: appearance normal, both eyes and all related structures CONJUNCTIVA: Yes conjunctivae normal Neck/C-Spine: COMMON NORMALS: no JVD Chest: COMMONS NORMALS: normal inspection of the chest Resp: COMMON NORMALS: normal respiratory effort and clear to auscultation bilaterally AUSCULTATION: clear to auscultation bilaterally Cardio: COMMON NORMALS: no JVD, regular rate and regular rhythm RATE: regular rate RHYTHM: regular rhythm GI: COMMON NORMALS: Normal to inspection, nondistended, normoactive bowel sounds present PALPATION: Yes Tenderness to palpation present (GI) (Diffuse and mild) Extremity: COMMON NORMALS: normal to inspection and full ROM Neuro: COMMON NORMALS: patient oriented x3 Course Vital Signs: Vital signs: Vital Signs Temperature 98.8 F 02/17/20 22:10 Pulse Rate 100 02/17/20 22:10 Respiratory Rate 18 02/17/20 22:10 Blood Pressure 160/92 02/17/20 22:10 Pulse Oximetry 96 02/17/20 22:10 Discharge Plan Discharge Prescriptions: No Action loratadine [Claritin] 10 mg tablet 10 mg PO DAILY RF: 0 fluticasone propionate 50 mcg/actuation spray,suspension 1 spray INTRANASAL DAILY RF: 0 Celexa 40 mg tablet 40 mg PO DAILY RF: 0 hydroxyzine HCl 50 mg tablet 50 mg PO BID PRN (Reason: Anxiety) RF: 0 Seroquel XR 150 mg tablet extended release 24 hr 150 mg PO BEDTIME RF: 0 Coding Level of Care Code ED Educational Psychology Professor for Martínezg Halley
[2020-02-17] MEDS: iohexol 350 mg/mL 100 mL Btl IV (22:56)
[2020-02-17] MEDS: ipratropium-albuterol 3 mL Neb INHALATION (23:47)
[2020-02-17 23:48] VITALS: PULSE 101; RESP 18; O2SAT 100
[2020-02-17 23:51] VITALS: PULSE 100; RESP 20; O2SAT 100
[2020-02-18] MEDS: lidocaine 2% viscous 15 ML, aluminum-mag hydrox-simethicon 30 ML, sucralfate oral liq 1 GM PO (01:35)
== END 2020-02-18 01:30 | disposition home or self-care (01) ==
PROVIDERS: Emergency Provider Nurse Practitioner Family; PCP Internal Medicine
DX: R10.9 Unspecified abdominal pain (principal); F17.210 Nicotine dependence, cigarettes, uncomplicated
CPT/HCPCS: 12345; 71275; 74177; 94640; 99283; Q9967

== ENCOUNTER → 2020-04-08 07:24 | Outpatient (BNVA) | payer MEDICAID, SELFPAY | PROVIDERS: PCP Internal Medicine; Visit Provider Psychiatry & Neurology Psychiatry | DX: F33.42 Major depressive disorder, recurrent, in full remission (principal); F10.21 Alcohol dependence, in remission | CPT/HCPCS: 99213 ==

== ENCOUNTER → 2020-07-01 07:24 | Outpatient (BNVA) | payer MEDICAID, SELFPAY | PROVIDERS: PCP Internal Medicine; Visit Provider Psychiatry & Neurology Psychiatry | DX: F33.42 Major depressive disorder, recurrent, in full remission (principal); F10.21 Alcohol dependence, in remission; F17.210 Nicotine dependence, cigarettes, uncomplicated | CPT/HCPCS: 99213 ==

== ENCOUNTER 2020-10-07 14:13 | Emergency (ER) | payer MEDICAID, SELFPAY ==
[2020-10-07 14:20] VITALS: BP 163/91; PULSE 107; RESP 18; TEMP 36.7; O2SAT 99; BMI 21.6
--- NOTE | 2020-10-07 15:40 | XR_ITS ---
WS: [id number] Exam: XR chest 1V portable [id number] Date/Time of Exam: 10/07/2020 3:52 PM Reason For Exam: L lower pain Comparison 02/16/2020. The lungs are hyperinflated and clear. Unremarkable cardiomediastinal structures. No pleural effusion s. Bony elements are intact. XR/XR chest 1V portable [id number] IMPRESSION: 1. Pulmonary hyperinflation which might indicate obstructive lung disease. 2. No acute process.
[2020-10-07 15:42] VITALS: BP 170/88; PULSE 71; RESP 16; O2SAT 99
--- NOTE | 2020-10-07 15:42 | ED_ITS ---
HPI - Back Pain/Injury General: Chief Complaint: Back Pain/Injury Stated Complaint: sudden/severe lower back pain Time Seen by Provider: 10/07/20 15:27 Source: patient Mode of arrival: ambulatory Limitations: no limitations History of Present Illness: HPI Narrative: Patient is a 59-year-old male who presents to ED today with complaint of right-sided back pain that seems to radi ate around into the front of his abdomen but denies specific abdominal pain. No N/V/D/C. He denies any injury or trauma to his back. He states pain started today while at rest. Patient's history is somewhat hard to obtain. He tells me he has had this back pain several times before and states it is normally alleviated with the shots that you give me . He also tells me he feels like it could be his right lower lung stating that sometimes he feels short of breath. He tells me he recently saw his PCP provider who has ordered him pulmonary function tests and follow-up with pulmonology. MD elicited complaint: back pain Pertinent past history: prior back pain Onset (ago): hour(s) Timing: constant Severity: severe Similar Symptoms Previously: Yes Location: right lower back Radiation: abdomen Exacerbating factors: movement Relieving factors: none Associated symptoms: Deny abdominal pain, chills, dysuria, fatigue, fever(s), nausea, syncope, urinary urgency or vomiting Work related injury: No Review of Systems Const: Denies: fever(s), chills, body aches, fatigue or malaise Eyes: Denies: change in vision or blurry vision Card: Denies: chest pain, palpitations, irregular heart rhythm, edema, swelling of feet/ankles, lightheadedness, syncope, pre-syncope, dyspnea on exertion, orthopnea, leg pain with exertion or acrocyanosis Resp: Reports: dyspnea; Denies: productive cough, non-productive cough, wheezing, pain on inspiration, change in phlegm color, hemoptysis or chest congestion GI: Denies: abdominal pain, nausea, vomiting or diarrhea : Denies: flank pain, difficulty urinating, dysuria, urinary frequency, urinary urgency or urinary hesitancy Musc: Denies: neck pain or back pain Skin/Breast: Denies: rash Neuro: Denies: headache(s), numbness in extremities, weakness in extremities or sensory changes PFSH ED PFSH: Medical History (Updated 10/07/20 @ 16:48 by POLO Salinas) Alcohol dependence in early full remission Cigarette nicotine dependence Major depression, recurrent, full remission Social History Smoking and tobacco status: current every day smoker Physical Exam Const: COMMON NORMALS: no acute distress, average body habitus, patient oriented x3, no limitations, healthy appearing, alert and well nourished GENERAL APPEARANCE: cooperative ORIENTATION/CONSCIOUSNESS: Yes awake, Yes oriented to person, Yes oriented to place and Yes oriented to time Neck/C-Spine: COMMON NORMALS: full ROM CERVICAL SPINE: Yes cervical ROM normal, No pain with cervical ROM, No Cervical spine tenderness and No Paracervical muscle tenderness Chest: COMMONS NORMALS: normal inspection of the chest and normal palpation of entire chest wall Resp: COMMON NORMALS: normal respiratory effort and clear to auscultation bilaterally AUSCULTATION: clear to auscultation bilaterally Cardio: COMMON NORMALS: regular rate and regular rhythm RATE: regular rate RHYTHM: regular rhythm GI: COMMON NORMALS: Normal to inspection, nondistended, normoactive bowel sounds present, Soft to palpation, non-tender, No hepatosplenomegaly present and no masses PALPATION: Yes Soft to palpation and Yes No hepatosplenomegaly present : COMMON NORMALS: Yes no CVA tenderness BLADDER/KIDNEY EXAM: Yes no CVA tenderness Back/Pelvis: COMMON NORMALS: no CVA tenderness, thoracic and lumbar spine normal to inspection, no thoracic nor lumbar tenderness and thoraco-lumbar ROM normal THORACIC SPINE/UPPER BACK: Yes normal to inspection, Yes thoracic ROM normal, No thoracic spinal tenderness and Yes paraspinal muscle spasm Thoracic paraspinal muscle spasm: right LUMBAR SPINE/LOWER BACK: Yes normal to inspection, Yes lumbar ROM normal, No lumbar spinal tenderness, Yes paraspinal muscle spasm Lumbar paraspinal muscle spasm: right and Yes straight leg raise negative bilaterally PELVIS: Yes buttocks normal SACROILIAC JOINTS: Yes SI joints normal Extremity: COMMON NORMALS: normal to inspection and full ROM GENERAL: Yes normal exam except as noted Neuro: TRICIA COMA SCALE: document GCS findings Dawson coma scale eye opening: Spontaneous Tricia coma scale verbal response: Orientated Tricia coma scale motor response: Obey commands Dawson coma scale total score: 15 COMMON NORMALS: patient oriented x3, moves all extremities, no focal motor deficits, no sensory deficits noted and gait normal SENSORIUM/ORIENTATION: Yes alert, Yes oriented to person, Yes oriented to place and Yes oriented to time Skin: COMMON NORMALS: no rashes or lesions noted GENERAL SKIN EXAM: no rashes or lesions noted Course Vital Signs: Vital signs: Vital Signs Temperature 98.1 F 10/07/20 14:20 Pulse Rate 71 10/07/20 15:42 Respiratory Rate 16 10/07/20 15:42 Blood Pressure 170/88 10/07/20 15:42 Pulse Oximetry 99 10/07/20 15:42 MDM - Back Pain/Injury MDM Narrative: Medical decision making narrative: Patient has had right-sided back pain several times previously looking at previous ED records. His CXR does not show any acute findings. UA (ordered due to location of pain) to screen for possible kidney/ureter stone is normal. Patient feels better after IM Toradol/Norflex. Recommend follow-up with PCP. Return to ED precautions given. Lab Data: Labs: Lab Results 10/07/20 Range/Units 16:20 Urine Color Straw (Yellow) Urine Appearance Clear (CLEAR) Urine pH 7 (5-7) Ur Specific Gravit y 1.005 (1.005-1.030) Urine Protein Neg (Negative) Urine Glucose (UA) Norm (Normal) Urine Ketones Negative (Negative) Urine Blood Neg (Negative) Urine Nitrate Negative (Negative) Urine Bilirubin Neg (Negative) Urine Urobilinogen Norm (Negative) mg/dL Ur Leukocyte Marguerite ase Negative (Negative) Imaging Data^: CXR: Radiologist's impression: [address] [address] XRay Report Signed Patient: Calos Dahl Unit #: [id number] : [id number] Age/Sex: 59 / M ADM Date: 10/07/20 Loc: ER Room/Bed: Attending Dr: Ordering Provider/Ordering MD: Beth Amaro Date of Service: 10/07/20 Procedure(s): XR chest 1V portable [id number] Accession Number(s): [id number] Report Number: [id number] WS: [id number] Exam: XR chest 1V portable [id number] Date/Time of Exam: 10/07/2020 3:52 PM Reason For Exam: L lower pain Comparison 02/16/2020. The lungs are hyperinflated and clear. Unremarkable cardiomediastinal structures. No pleural effusions. Bony elements are intact. XR/XR chest 1V portable [id number] IMPRESSION: 1. Pulmonary hyperinflation which might indicate obstructive lung disease. 2. No acute process. Dictated By: Darion Cramer DO Signed By: Darion Cramer DO Signed Date/Time: 10/07/20 1601 DD/ 1600 Discharge Plan Discharge Patient Disposition: Home Clinical Impression: Right-sided back pain Qualifiers: Back pain location: thoracic back pain Chronicity: acute Qualified Code(s): M54.6 - Pain in thoracic spine Condition: Stable Prescriptions: New cyclobenzaprine 10 mg tablet 10 mg PO TID Qty: 14 RF: 0 prednisone 10 mg tablet 60 mg PO DAILY 5 Days Qty: 30 RF: 0 No Action loratadine [Claritin] 10 mg tablet 10 mg PO DAILY RF: 0 fluticasone propionate 50 mcg/actuation spray,suspension 2 spray INTRANASAL DAILY RF: 0 hydroxyzine HCl 50 mg tablet 50 mg PO BID PRN (Reason: Anxiety) Qty: 60 RF: 5 Seroquel XR 150 mg tablet extended release 24 hr 150 mg PO BEDTIME Qty: 30 RF: 5 Advair Diskus 250-50 mcg/dose Blister With Device 1 inh INHALATION BID RF: 0 Mobic 15 mg Tablet 15 mg PO DAILY RF: 0 omeprazole 20 mg Capsule,Delayed Release(Dr/Ec) 20 mg PO DAILY RF: 0 Ergo-D 1,250 mcg (50,000 unit) Capsule 50,000 unit PO Q7D RF: 0 ProAir HFA 90 mcg/actuation Hfa Aerosol Inhaler 2 puff inhalation Q4H PRN (Reason: Shortness Of Breath) RF: 0 Voltaren 1 % Gel 2 - 4 g TOPICAL QID PRN (Reason: Pain) RF: 0 Celexa 40 mg tablet 40 mg PO QAM RF: 0 Discharge Orders: Discharge ED (Routine); Ordered 10/07/20 Ordered By: Beth Amaro Referrals: Gail Callaway MD [Primary Care Provider] - Patient Instructions: Opioid Safety Activity Restrictions/Additional Instructions: [facility] [place] is committed to fighting the nationwide opiate epidemic. We are providing ALL patients with information regarding opiate safety. If you received opiate pain medication during your stay or if you received a prescription for opiate pain medication-please review this handout. If not, you may disregard. Thank you. As discussed I have written you prescriptions for muscle relaxer and steroid. You may continue taking your meloxicam as directed. Do not take this medication with other [id number] anti-inflammatories such as Motrin, Ibuprofen, Aleve, Advil, Naproxen. You may follow-up with your primary care provider as needed. Coding Level of Care Code ED Inspector Plug Seam for Johnson Fwd Exam Comprehensive
[2020-10-07] MEDS: ketorolac 60 mg/2 mL INJ IM (16:21)
[2020-10-07] MEDS: orphenadrine 30 mg/mL Inj 2 mL 60 MG IM (16:21)
[2020-10-07 16:34] LABS: Add Urine Microscopic? NO
[2020-10-07 16:45] LABS: Bilirubin Urine Neg (Negative); Blood Urine Neg (Negative); Glucose Urine UA Norm (Normal); Ketones Urine Negative (Negative); Leukocyte Esterase Urine Negative (Negative); Nitrate Urine Negative (Negative); Protein Urine Neg (Negative); Specific Gravity, Urine 1.005 (1.005-1.030); Urine Appearance Clear (CLEAR); Urine Color Straw (Yellow); Urobilinogen Urine Norm (Negative); pH Urine 7 (5-7)
[2020-10-07 17:00] VITALS: BP 157/99; PULSE 91; RESP 17; O2SAT 91
== END 2020-10-07 17:01 | disposition home or self-care (01) ==
PROVIDERS: Emergency Provider Physician Assistant; PCP Internal Medicine
DX: M54.6 Pain in thoracic spine (principal); F17.210 Nicotine dependence, cigarettes, uncomplicated
CPT/HCPCS: 71045; 81003; 99283; J1885; J2360

== ENCOUNTER → 2020-10-09 14:34 | Outpatient (BNVA) | payer MEDICAID, SELFPAY | PROVIDERS: PCP Internal Medicine; Visit Provider Pediatrics | DX: Z20.822 Contact with and (suspected) exposure to COVID-19 (principal) | CPT/HCPCS: 87635 ==

== ENCOUNTER 2020-10-14 10:50 | Outpatient (CLI) | payer MEDICAID, SELFPAY ==
--- NOTE | 2020-10-14 11:14 | PFTS_ITS ---
Date of Study:10/14/20 Date of Dictation: 10/16/2020 MECHANICS: Forced vital capacity (FVC) is normal. Forced expiratory volume in one second (FEV1) is moderately reduced 63%. FEV1/FVC is reduced. FLOW VOLUME LOOP: Sloping of expiratory limb suggestive of airway obstruction. LUNG VOLUMES: Not measured DIFFUSING CAPACITY FOR CARBON MONOXIDE: Not measured . INTERPRETATION: The spirometry suggestive of moderate obstructive ventilatory defect.There is no significant response to bronchodilators. However use of bronchodilators is not precluded if clinically indicated. Please correlate clinically MTDD
== END 2020-10-14 10:51 | disposition home or self-care (01) ==
PROVIDERS: PCP Internal Medicine; Visit Provider Internal Medicine
DX: J44.9 Chronic obstructive pulmonary disease, unspecified (principal)
CPT/HCPCS: 94060; J7611

== ENCOUNTER 2020-10-20 09:32 | Outpatient (CLI) | payer MEDICAID, SELFPAY | END 2020-10-20 09:33 | disposition home or self-care (01) | PROVIDERS: PCP Internal Medicine; Visit Provider Nurse Practitioner Family | DX: L50.9 Urticaria, unspecified (principal) | CPT/HCPCS: 36415; 86003 ==

== ENCOUNTER 2020-12-16 11:21 | Emergency (ER) | payer MEDICAID, SELFPAY ==
[2020-12-16 11:39] VITALS: BP 157/97; PULSE 91; RESP 18; TEMP 36.6; O2SAT 96; BMI 21.6
[2020-12-16 11:42] VITALS: BP 162/106; PULSE 76; RESP 18; O2SAT 98
--- NOTE | 2020-12-16 13:30 | ED_ITS ---
HPI - Back Pain/Injury General: Chief Complaint: Back Pain/Injury Stated Complaint: ARM/BACK/NECK PAIN Time Seen by Provider: 12/16/20 13:18 Source: patient Mode of arrival: ambulatory Limitations: no limitations PFSH ED PFSH: Medical History (Updated 10/15/20 @ 10:15 by Luzmaria Davis MD) Alcohol dependence in early full remission Cigarette nicotine dependence Major depression, recurrent, full remission Social History Smoking and tobacco status: current every day smoker cigarettes Packs smoked per day: 1.5 Years cigarettes smoked: 40 Second hand smoke exposure: Yes Smoking risk assessment/counseling performed?: Yes Alcohol intake: former Counseling given: No Counseling given: No Lives independently: Yes Household members: none Marital status: Single Current occupational status: disabled History of recent travel: No Current gender identity: Male Course Vital Signs: Vital signs: Vital Signs Temperature 97.8 F 12/16/20 11:39 Pulse Rate 91 12/16/20 11:39 Respiratory Rate 18 12/16/20 11:39 Blood Pressure 157/97 12/16/20 11:39 Pulse Oximetry 96 12/16/20 11:39 Discharge Plan Discharge Prescriptions: No Action prednisone 10 mg tablet 10 mg PO DAILY RF: 0 loratadine [Claritin] 10 mg tablet 10 mg PO DAILY RF: 0 fluticasone propionate 50 mcg/actuation spray,suspension 2 spray INTRANASAL DAILY RF: 0 albuterol sulfate 2.5 mg /3 mL (0.083 %) solution for nebulization 2.5 mg inhalation Q4H PRNRF: 0 Spiriva with HandiHaler 18 mcg capsule, w/inhalation device 1 cap inhalation DAILY 30 Days Qty: 60 RF: 4 hydroxyzine HCl 50 mg tablet 50 mg PO BID PRN (Reason: Anxiety) Qty: 60 RF: 5 Seroquel XR 150 mg tablet extended release 24 hr 150 mg PO BEDTIME Qty: 30 RF: 5 Advair Diskus 250-50 mcg/dose Blister With Device 1 inh INHALATION BID RF: 0 Mobic 15 mg Tablet 15 mg PO DAILY RF: 0 omeprazole 20 mg Capsule,Delayed Release(Dr/Ec) 20 mg PO DAILY RF: 0 Ergo-D 1,250 mcg (50,000 unit) Capsule 50,000 unit PO Q7D RF: 0 ProAir HFA 90 mcg/actuation Hfa Aerosol Inhaler 2 puff inhalation Q4H PRN (Reason: Shortness Of Breath) RF: 0 Voltaren 1 % Gel 2 - 4 g TOPICAL QID PRN (Reason: Pain) RF: 0 Celexa 40 mg tablet 40 mg PO QAM RF: 0 cyclobenzaprine 10 mg tablet 10 mg PO TID Qty: 14 RF: 0 Coding Level of Care Code ED Maintenance And Operations Supervisor for Chg Halley
--- NOTE | 2020-12-16 13:42 | W.ED.NECK ---
HPI - Neck Pain/Injury General: Chief Complaint: Back Pain/Injury Stated Complaint: ARM/BACK/NECK PAIN Time Seen by Provider: 12/16/20 13:18 Source: patient Mode of arrival: ambulatory Limitations: no limitations History of Present Illness: HPI Narrative: Patient is a 60-year-old male who presents to ED today with a complaint of neck pain. Patient tells me he has a chronic history of neck pain stating he has degenerative disks and several bulging disks. He states he has had surgical evaluation but states they cannot fix anything . He has not had any known recent injury or trauma. He feels like pain radiates slightly into his bilateral upper extremities. He has not noticed any weakness. No tingling or loss of sensation. MD complaint: neck pain Onset (ago): week(s) Severity: moderate Quality: aching Duration: constant Relieving factors: none Exacerbating factors: none Context: other (acute on chronic neck pain) Associated symptoms: Reports no associated symptoms; Denies nausea Review of Systems Const: Denies: fever(s), chills, body aches, fatigue or malaise Eyes: Denies: change in vision or blurry vision ENMT: Denies: throat pain, odynophagia, ear or mastoid pain, tinnitus or disequilibrium Card: Denies: chest pain Resp: Denies: dyspnea GI: Denies: nausea or vomiting Musc: Reports: neck pain; Denies: back pain, extremity pain, extremity swelling, joint pain, joint swelling or limited range of motion Neuro: Denies: numbness in extremities, weakness in extremities or sensory changes [facility] ED PFSH: Medical History (Updated 12/16/20 @ 13:44 by POLO Salinas) Alcohol dependence in early full remission Cigarette nicotine dependence Major depression, recurrent, full remission Social History Smoking and tobacco status: current every day smoker cigarettes Packs smoked per day: 1.5 Years cigarettes smoked: 40 Second hand smoke exposure: Yes Smoking risk assessment/counseling performed?: Yes Alcohol intake: former Counseling given: No Counseling given: No Lives independently: Yes Household members: none Marital status: Single Current occupational status: disabled History of recent travel: No Current gender identity: Male Physical Exam Const: COMMON NORMALS: no acute distress, average body habitus, patient oriented x3, no limitations, healthy appearing, alert and well nourished GENERAL APPEARANCE: cooperative ORIENTATION/CONSCIOUSNESS: Yes awake, Yes oriented to person, Yes oriented to place and Yes oriented to time HENMT: COMMON NORMALS: normocephalic and atraumatic HEAD & SCALP: normocephalic and atraumatic Eye: COMMON NORMALS: Equal, round and reactive pupils present and EOMs intact bilaterally GENERAL EYE: appearance normal, both eyes and all related structures PUPIL: Yes Equal, round and reactive pupils present Neck/C-Spine: COMMON NORMALS: full ROM, no lymphadenopathy and no meningeal signs GENERAL: Yes normal visual inspection CERVICAL SPINE: Yes cervical ROM normal, Yes pain with cervical ROM, Yes Cervical spine tenderness (mid c spine), No step off deformity, No Paracervical muscle tenderness, No Paracervical spasm and No Trapezius muscle tenderness Back/Pelvis: COMMON NORMALS: thoracic and lumbar spine normal to inspection, no thoracic nor lumbar tenderness and thoraco-lumbar ROM normal Extremity: COMMON NORMALS: normal to inspection and full ROM GENERAL: Yes normal exam except as noted Neuro: COMMON NORMALS: patient oriented x3, moves all extremities, no focal motor deficits and no sensory deficits noted SENSORIUM/ORIENTATION: Yes alert, Yes oriented to person, Yes oriented to place and Yes oriented to time MENINGEAL SIGNS: Yes no meningeal signs MOTOR EXAM: 5/5 motor strength present throughout Skin: COMMON NORMALS: no rashes or lesions noted GENERAL SKIN EXAM: no rashes or lesions noted Course Vital Signs: Vital signs: Vital Signs Temperature 98.1 F 12/16/20 14:28 Pulse Rate 72 12/16/20 14:28 Respiratory Rate 18 12/16/20 14:28 Blood Pressure 158/96 12/16/20 14:28 Pulse Oximetry 96 12/16/20 14:28 Discharge Plan Discharge Patient Disposition: Home Clinical Impression: Neck pain Condition: Stable Prescriptions: New Medrol (Sathish) 4 mg tablets,dose pack See Rx Instructions .ROUTE .COMPLEX Qty: 21 RF: 0 No Action loratadine [Claritin] 10 mg tablet 10 mg PO DAILY RF: 0 fluticasone propionate 50 mcg/actuation spray,suspension 1 spray INTRANASAL BID RF: 0 albuterol sulfate 2.5 mg /3 mL (0.083 %) solution for nebulization 2.5 mg inhalation Q4H PRN (Reason: Shortness Of Breath) RF: 0 Spiriva with HandiHaler 18 mcg capsule, w/inhalation device 1 cap inhalation DAILY 30 Days Qty: 60 RF: 4 Seroquel XR 150 mg tablet extended release 24 hr 150 mg PO BEDTIME Qty: 30 RF: 5 fluticasone propion-salmeterol [Advair Diskus] 250-50 mcg/dose Blister With Device 1 inh INHALATION BID RF: 0 meloxicam [Mobic] 15 mg Tablet 15 mg PO DAILY RF: 0 omeprazole 20 mg Capsule,Delayed Release(Dr/Ec) 20 mg PO DAILY RF: 0 albuterol sulfate [ProAir HFA] 90 mcg/actuation Hfa Aerosol Inhaler 2 puff inhalation Q4H PRN (Reason: Shortness Of Breath) RF: 0 diclofenac sodium [Voltaren] 1 % Gel 2 - 4 g TOPICAL QID PRN (Reason: Pain) RF: 0 ibuprofen 200 mg Tablet 800 mg PO PRN RF: 0 Singulair 10 mg Tablet 10 mg PO DAILY RF: 0 Discharge Orders: Discharge ED (Routine); Ordered 12/16/20 Ordered By: Beth Amaro Referrals: Gail Callaway MD [Primary Care Provider] - Coding Level of Care Code ED Nurse Healthcare Manager for Chg Fwd Exam Comprehensive
[2020-12-16] MEDS: ketorolac 60 mg/2 mL INJ IM (13:48)
[2020-12-16] MEDS: orphenadrine 30 mg/mL Inj 2 mL 60 MG IM (13:49)
[2020-12-16 14:28] VITALS: BP 158/96; PULSE 72; RESP 18; TEMP 36.7; O2SAT 96
== END 2020-12-16 14:29 | disposition home or self-care (01) ==
PROVIDERS: Emergency Provider Physician Assistant; PCP Internal Medicine
DX: M54.2 Cervicalgia (principal); F17.210 Nicotine dependence, cigarettes, uncomplicated
CPT/HCPCS: 96372; 99283; J1885; J2360

== ENCOUNTER → 2021-01-27 07:08 | Outpatient (BNVA) | payer MEDICAID, SELFPAY | PROVIDERS: PCP Internal Medicine; Visit Provider Psychiatry & Neurology Psychiatry | DX: F33.42 Major depressive disorder, recurrent, in full remission (principal); F10.21 Alcohol dependence, in remission; F17.210 Nicotine dependence, cigarettes, uncomplicated; F17.200 Nicotine dependence, unspecified, uncomplicated | CPT/HCPCS: 99214 ==

== ENCOUNTER 2021-02-07 08:13 | Emergency (ER) | payer MEDICAID, SELFPAY ==
[2021-02-07 08:23] VITALS: BP 146/88; PULSE 98; RESP 18; TEMP 36.8; O2SAT 98; BMI 21.6
--- NOTE | 2021-02-07 08:35 | ED_ITS ---
HPI - General Adult General: Chief complaint: General Medical Stated complaint: RIGHT ARM PAIN Time Seen by Provider: 02/07/21 08:31 History of Present Illness: HPI narrative: Patient complains about pain to his right shoulder area. He said it started after he did receive the Covid vaccine. He says it hurts to move his arm around and rollover in bed when he is trying to sleep. Has not tried any medication to help with discomfort. Vaccine was a few weeks ago. Denies any swelling erythema or other related problems today area MD complaint: Shoulder pain Onset (ago): week(s) Location: right and upper extremity Radiation: non-radiation Severity: mild Severity scale (1-10): 4 Quality: aching Pain Consistency: intermittent Relieving factors: immobilization Exacerbating factors: movement Associated symptoms: Reports no associated symptoms; Deny chest pain, dyspnea, headache(s), nausea, rash or vomiting Treatments prior to arrival: none Review of Systems Const: Denies: fever(s), chills or body aches Eyes: Denies: change in vision or blurry vision ENMT: Denies: throat pain or nasal congestion Card: Denies: chest pain or dyspnea on exertion Resp: Denies: dyspnea, productive cough or non-productive cough GI: Denies: abdominal pain, nausea or vomiting : Denies: difficulty urinating Musc: Reports: extremity pain (Pain with range of motion right shoulder area 4 weeks) Skin/Breast: Denies: rash Neuro: Denies: headache(s) Psych: Denies: anxiety or depression Jason/Lymph: Denies: easy bruising PFSH ED PFSH: Medical History (Updated 02/07/21 @ 08:35 by MICHELA Peralta) Alcohol dependence in early full remission Cigarette nicotine dependence Major depression, recurrent, full remission Social History Smoking and tobacco status: current every day smoker cigarettes Packs smoked per day: 1.5 Years cigarettes smoked: 40 Second hand smoke exposure: Yes Smoking risk assessment/counseling performed?: Yes Alcohol intake: former Counseling given: No Counseling given: No Lives independently: Yes Household members: none Marital status: Single Current occupational status: disabled History of recent travel: No Current gender identity: Male Physical Exam Const: COMMON NORMALS: no acute distress GENERAL APPEARANCE: cooperative Extremity: RIGHT UPPER EXTREMITY: Yes shoulder joint (Tenderness to the muscle right deltoid area, good range of motion shoulder) Right shoulder: Yes Right shoulder joint inspection exam (Normal ), Yes palpation, Yes Right shoulder joint ROM exam (Full) and Yes Right shoulder joint neurovascular exam (Intact) Skin: COMMON NORMALS: no rashes or lesions noted GENERAL SKIN EXAM: no rashes or lesions noted Course Vital Signs: Vital signs: Vital Signs Temperature 98.3 F 02/07/21 08:23 Pulse Rate 98 02/07/21 08:23 Respiratory Rate 18 02/07/21 08:23 Blood Pressure 146/88 02/07/21 08:23 Pulse Oximetry 98 02/07/21 08:23 Discharge Plan Discharge Patient Disposition: Home Clinical Impression: Bursitis Qualifiers: Bursitis location: shoulder Laterality: right Qualified Code(s): M75.51 - Bursitis of right shoulder Condition: Stable Prescriptions: New Voltaren 1 % gel 4 g topical QID Qty: 100 RF: 0 No Action Seroquel XR 150 mg tablet extended release 24 hr 150 mg PO BEDTIME Qty: 30 RF: 5 loratadine [Claritin] 10 mg tablet 10 mg PO DAILY RF: 0 fluticasone propionate 50 mcg/actuation spray,suspension 1 spray INTRANASAL BID RF: 0 albuterol sulfate 2.5 mg /3 mL (0.083 %) solution for nebulization 2.5 mg inhalation Q4H PRN (Reason: Shortness Of Breath) RF: 0 Spiriva with HandiHaler 18 mcg capsule, w/inhalation device 1 cap inhalation DAILY 30 Days Qty: 60 RF: 4 fluticasone propion-salmeterol [Advair Diskus] 250-50 mcg/dose Blister With Device 1 inh INHALATION BID RF: 0 meloxicam [Mobic] 15 mg Tablet 15 mg PO DAILY RF: 0 omeprazole 20 mg Capsule,Delayed Release(Dr/Ec) 20 mg PO DAILY RF: 0 albuterol sulfate [ProAir HFA] 90 mcg/actuation Hfa Aerosol Inhaler 2 puff inhalation Q4H PRN (Reason: Shortness Of Breath) RF: 0 diclofenac sodium [Voltaren] 1 % Gel 2 - 4 g TOPICAL QID PRN (Reason: Pain) RF: 0 Medrol (Sathish) 4 mg tablets,dose pack See Rx Instructions .ROUTE .COMPLEX Qty: 21 RF: 0 ibuprofen 200 mg Tablet 800 mg PO PRN RF: 0 Singulair 10 mg Tablet 10 mg PO DAILY RF: 0 Discharge Orders: Discharge ED (Routine); Ordered 02/07/21 Ordered By: Maninder Luong Referrals: Gail Callaway MD [Primary Care Provider] - Discharge Diet: Usual diet Discharge Activity: Increase activity as tolerated Patient Instructions: Shoulder Bursitis (ED) Activity Restrictions/Additional Instructions: Follow-up with medical provider as directed. Take medications as prescribed. Return to the ER or your medical provider if condition worsens. Please read and understand discharge instructions. If any questions ask please. Follow-up Dr. Bruno if no significant provement noted after 3 to 4 days. Coding Level of Care Code ED Operations Research Director for [employer]
== END 2021-02-07 08:51 | disposition home or self-care (01) ==
PROVIDERS: Emergency Provider Nurse Practitioner Family; PCP Internal Medicine
DX: M75.51 Bursitis of right shoulder (principal); F17.210 Nicotine dependence, cigarettes, uncomplicated
CPT/HCPCS: 99281

== ENCOUNTER 2021-03-09 09:00 | Outpatient (CLI) | payer MEDICAID, SELFPAY ==
--- NOTE | 2021-03-09 09:07 | CT_ITS ---
WS: [id number] LDCT LUNG CANCER SCREENING TECHNIQUE: Noncontrast CT of the chest with coronal and sagittal reformatted images. CLINICAL INFORMATION: Nicotine addiction COMPARISON: CTA chest February 17, 2020 DLP: 57.35 mGy.cm DIvol: 1.[address] scans at [facility] use at least one of these dose optimization techniques: automat ed exposure control; mA and/or kV adjustment per patient size (includes targeted exams where dose is matched to clinical indication); or iterative reconstruction. FINDINGS: Moderate chronic emphysematous changes. No suspicious pulmonary parenchymal opacities. No acute pulmo nary infiltrates. No focal pneumonia or pleural fluid. Aortic calcification. Coronary calcification. No mediastinal or hilar lymphadenopathy. Small esophageal hiatal hernia. Adrenal glands are normal. N ormal visualized thoracic spine. Mild thoracic curve. CT/CT lung screening [id number] IMPRESSION: LUNG-RADS: 1-Negative FOLLOW UP: 12 Month: Continue annual screening with LDCT
== END 2021-03-09 09:01 | disposition home or self-care (01) ==
LOC: CT 09:03
PROVIDERS: PCP Internal Medicine; Visit Provider Internal Medicine Critical Care Medicine
DX: Z12.2 Encounter for screening for malignant neoplasm of respiratory organs (principal); F17.200 Nicotine dependence, unspecified, uncomplicated
CPT/HCPCS: 71271

== ENCOUNTER → 2021-04-21 12:33 | Outpatient (BNVA) | payer MEDICAID, SELFPAY | PROVIDERS: PCP Internal Medicine; Visit Provider Psychiatry & Neurology Psychiatry | DX: F33.42 Major depressive disorder, recurrent, in full remission (principal); F17.200 Nicotine dependence, unspecified, uncomplicated; F10.21 Alcohol dependence, in remission | CPT/HCPCS: 99214 ==

== ENCOUNTER → 2021-07-15 08:26 | Outpatient (BNVA) | payer MEDICAID, SELFPAY | PROVIDERS: PCP Internal Medicine; Visit Provider Psychiatry & Neurology Psychiatry | DX: F33.42 Major depressive disorder, recurrent, in full remission (principal); F10.21 Alcohol dependence, in remission; F17.210 Nicotine dependence, cigarettes, uncomplicated | CPT/HCPCS: 99213 ==

== ENCOUNTER 2021-08-16 07:52 | Emergency (ER) | payer MEDICAID, SELFPAY ==
[2021-08-16 07:52] VITALS: BP 154/74; PULSE 82; RESP 18; TEMP 36.7; O2SAT 98
[2021-08-16 07:55] VITALS: BP 154/74; PULSE 82; RESP 18; TEMP 36.7; O2SAT 98
--- NOTE | 2021-08-16 07:55 | W.ED.URI ---
HPI - URI/Sore Throat General: Chief Complaint: Upper Respiratory Infection Stated Complaint: cough Time Seen by Provider: 08/16/21 07:52 History of Present Illness: HPI Narrative: 60-year-old male presents emergency room complaining of cough generally not feeling well he had a little bit of diarrhea this all began yesterday and worsened overnight generalized myalgias. He has chest discomfort when he coughs otherwise it is gone. He does not have a productive cough. He has a known history of COPD he is on Advair and albuterol nebs. Patient has previously been vaccinated for COVID and has a booster he has not been known to be tested positive for Covid in the past. MD elicited complaint: fever and cough Pertinent past history: COPD Onset (ago): day(s) (1) Consistency: constant Severity: mild Exacerbating factors: nothing Relieving factors: nothing Associated symptoms: Reports chills, chest pain, congestion, cough, myalgias, nasal congestion, rhinorrhea and sore throat; Deny abdominal pain, change in voice, diarrhea, epistaxis, ear or mastoid pain, fever(s), headache(s), nausea, rash, short of breath, sinus pain, stiffness or vomiting Treatments prior to arrival: none Review of Systems Const: Reports: chills; Denies: fever(s) ENMT: Reports: nasal congestion; Denies: ear or mastoid pain, epistaxis or sinus pain Card: Reports: chest pain Resp: Denies: dyspnea, productive cough or non-productive cough GI: Denies: abdominal pain, nausea, vomiting or diarrhea : Denies: flank pain, dysuria, urinary frequency or urinary urgency Skin/Breast: Denies: rash or pruritus Neuro: Denies: headache(s) PFSH ED PFSH: Medical History Major depression, recurrent, full remission Psychiatric care Social History Smoking and tobacco status: current every day smoker cigarettes Packs smoked per day: 1.5 Years cigarettes smoked: 40 Second hand smoke exposure: Yes Smoking risk assessment/counseling performed?: Yes Alcohol intake: former Counseling given: No Counseling given: No Lives independently: Yes Household members: none Marital status: Single Current occupational status: disabled History of recent travel: No Current gender identity: Male Physical Exam Const: COMMON NORMALS: no acute distress GENERAL APPEARANCE: cooperative and comfortable ORIENTATION/CONSCIOUSNESS: Yes awake, Yes oriented to person, Yes oriented to place and Yes oriented to time HENMT: COMMON NORMALS: normocephalic, atraumatic and hearing grossly normal bilaterally HEAD & SCALP: normocephalic and atraumatic Neck/C-Spine: COMMON NORMALS: no JVD Resp: COMMON NORMALS: normal respiratory effort, No retractions, No use of accessory muscles and clear to auscultation bilaterally AUSCULTATION: clear to auscultation bilaterally Cardio: COMMON NORMALS: no JVD, regular rate, regular rhythm and No murmurs present (Cardio) RATE: regular rate RHYTHM: regular rhythm GI: COMMON NORMALS: Soft to palpation and No hepatosplenomegaly present AUSCULTATION: Yes normoactive bowel sounds PALPATION: Yes Soft to palpation, No Tenderness to palpation present (GI), No Guarding due to palpation present (GI) and Yes No hepatosplenomegaly present Extremity: COMMON NORMALS: normal to inspection, capillary refill normal, no clubbing, cyanosis or edema, no calf tenderness and no pedal edema Neuro: SENSORIUM/ORIENTATION: Yes oriented to person, Yes oriented to place and Yes oriented to time Skin: COMMON NORMALS: no rashes or lesions noted GENERAL SKIN EXAM: no rashes or lesions noted Course Vital Signs: Vital signs: Vital Signs Temperature 98.0 F 08/16/21 07:55 Pulse Rate 82 08/16/21 07:55 Respiratory Rate 18 08/16/21 07:55 Blood Pressure 154/74 08/16/21 07:55 Pulse Oximetry 98 08/16/21 07:55 MDM - URI/Sore Throat MDM Narrative: Medical decision making narrative: Suspect COVID-19 and mild COPD exacerbation. Discharged home on doxycycline Medrol Dosepak albuterol. Patient is stable and well-appearing at this time continue his other medications. Lab Data: Labs: Lab Results 08/16/21 08/16/21 08:10 10:15 Coronavirus 229E ( PCR) Not detected (NOT DETECT) Human Metapneumovi r PCR Not detected (NOT DETECT) Entero/Rhino (PCR) Detected A (NOT DETECT) SARS-CoV-2 (PCR) Not detected (NOT DETECT) Discharge Plan Discharge Patient Disposition: Home Clinical Impression: Suspected COVID-19 virus infection, COPD with acute exacerbation Condition: Stable Prescriptions: New doxycycline hyclate 100 mg capsule 100 mg PO BID 10 Days Qty: 20 RF: 0 Medrol (Sathish) 4 mg tablets,dose pack See Rx Instructions .ROUTE .COMPLEX Qty: 21 RF: 0 albuterol sulfate 90 mcg/actuation HFA aerosol inhaler 2 inh INHALATION Q4H PRN (Reason: shortness of breath or wheezing) Qty: 18 RF: 0 No Action loratadine [Claritin] 10 mg tablet 10 mg PO DAILY RF: 0 fluticasone propionate 50 mcg/actuation spray,suspension 1 spray INTRANASAL BID RF: 0 albuterol sulfate 2.5 mg /3 mL (0.083 %) solution for nebulization 2.5 mg inhalation Q4H PRN (Reason: Shortness Of Breath) RF: 0 Seroquel XR 150 mg tablet extended release 24 hr 150 mg PO BEDTIME Qty: 30 RF: 5 Spiriva with HandiHaler 18 mcg capsule, w/inhalation device 1 cap inhalation DAILY 30 Days Qty: 30 RF: 4 Voltaren 1 % gel 4 g topical QID Qty: 100 RF: 0 fluticasone propion-salmeterol [Advair Diskus] 250-50 mcg/dose Blister With Device 1 inh INHALATION BID RF: 0 meloxicam [Mobic] 15 mg Tablet 15 mg PO DAILY RF: 0 omeprazole 20 mg Capsule,Delayed Release(Dr/Ec) 20 mg PO DAILY RF: 0 albuterol sulfate [ProAir HFA] 90 mcg/actuation Hfa Aerosol Inhaler 2 puff inhalation Q4H PRN (Reason: Shortness Of Breath) RF: 0 ibuprofen 200 mg Tablet 800 mg PO PRN RF: 0 Singulair 10 mg Tablet 10 mg PO DAILY RF: 0 Discharge Orders: Discharge ED (Routine); Ordered 08/16/21 Ordered By: Nishant Shine Referrals: Gail Callaway MD [Primary Care Provider] - Patient Instructions: Opioid Safety Coding Level of Care Code ED Associate Professor Of Automation for Chg Fwd Exam Comprehensive
--- NOTE | 2021-08-16 08:07 | XRR_ITS ---
PROCEDURE INFORMATION: Exam: XR Chest Exam date and time: 08/16/2021 8:07 AM Age: 60 years old Clinical indication: Cough and dyspnea and fever; Additional info: Dyspnea/cough TECHNIQUE: Imaging protocol: XR of the chest. Views: 1 view. COMPARISON: CR XR chest 1V portable [id number] 10/07/2020 3:47 PM FINDINGS: Lungs: Minimal bibasilar atelectasis. Pneumonia should be excluded clinically. Pleural spaces: Unremarkable. No pleural effusion. No pneumothorax. Heart/Mediastinum: Unremarkable. No cardiomegaly. Bones/joints: Unremarkable. XR/XR chest 1V portable [id number] IMPRESSION: Minimal bibasilar atelectasis. Pneumonia should be excluded clinically.
[2021-08-16 10:05] LABS: Adenovirus Not Detected (NOT DETECT); Chlamydia Pneumoniae Not Detected (NOT DETECT); Coronavirus 229E,HKU1,NL63,OC4 Not Detected (NOT DETECT); Human Metapneumovirus Not Detected (NOT DETECT); Human Rhinovirus/Enterovirus Detected (NOT DETECT); Influenza A Not Detected (NOT DETECT); Influenza A H1 Not Detected (NOT DETECT); Influenza A H1-2009 Not Detected (NOT DETECT); Influenza A H3 Not Detected (NOT DETECT); Influenza B Not Detected (NOT DETECT); Mycoplasma Pneumoniae Not Detected (NOT DETECT); Parainfluenza Virus Type 1 Not Detected (NOT DETECT); Parainfluenza Virus Type 2 Not Detected (NOT DETECT); Parainfluenza Virus Type 3 Not Detected (NOT DETECT); Parainfluenza Virus Type 4 Not Detected (NOT DETECT); Respiratory Syncytial Virus A Not Detected (NOT DETECT); Respiratory Syncytial Virus B Not Detected (NOT DETECT); SARS-COV-2 Not Detected (NOT DETECT)
[2021-08-16 10:15] LABS: Human Metapneumovirus Not Detected (NOT DETECT); Human Rhinovirus/Enterovirus Detected (NOT DETECT); Results from GT
== END 2021-08-16 08:41 | disposition home or self-care (01) ==
PROVIDERS: Emergency Provider Family Medicine; PCP Internal Medicine
DX: J44.1 Chronic obstructive pulmonary disease with (acute) exacerbation (principal); F17.210 Nicotine dependence, cigarettes, uncomplicated; Z20.822 Contact with and (suspected) exposure to COVID-19
CPT/HCPCS: 71045; 87635; 87801; 99282

== ENCOUNTER → 2021-10-15 07:41 | Outpatient (BNVA) | payer MEDICAID, SELFPAY | PROVIDERS: PCP Internal Medicine; Visit Provider Psychiatry & Neurology Psychiatry | DX: F33.42 Major depressive disorder, recurrent, in full remission (principal); F17.200 Nicotine dependence, unspecified, uncomplicated | CPT/HCPCS: 99213 ==

== ENCOUNTER → 2021-11-09 13:23 | Outpatient (BNVA) | payer MEDICAID, SELFPAY | PROVIDERS: PCP Internal Medicine; Visit Provider Internal Medicine Critical Care Medicine | DX: J44.9 Chronic obstructive pulmonary disease, unspecified (principal); R21 Rash and other nonspecific skin eruption; J30.9 Allergic rhinitis, unspecified; F17.210 Nicotine dependence, cigarettes, uncomplicated; F33.42 Major depressive disorder, recurrent, in full remission | CPT/HCPCS: 99214 ==

== ENCOUNTER 2022-03-19 09:03 | Emergency (ER) | payer MEDICAID, SELFPAY ==
--- NOTE | 2022-03-19 09:20 | ECG_ITS ---
[facility] Test Date: 2022-03-19 Pat Name: Calos Dahl Department: Room: Gender: Male Briar Cutter: : [id number] Requested By: Nishant Bowles Order Number: [id number] Lsia MD: Donita Orlando M.D. Measurements Intervals Cameron Rate: 73 P: 78 FL: 122 QRS: 79 QRSD: 101 T: 58 QT: 374 QTc: 413 Interpretive Statements SINUS RHYTHM WITH SINUS ARRHYTHMIA INCOMPLETE RIGHT BUNDLE BRANCH BLOCK [90+ ms QRS DURATION, TERMINAL R IN V1/V2, 40+ ms S IN I/aVL/V4/V5/V6] Compared to ECG 02/17/2020 13:24:18 Incomplete right bundle-branch block now present Short FL interval no longer present Electronically Signed On 03-19-2022 18:57:22 CDT by Donita Orlando M.D. [id number]
[2022-03-19 09:23] VITALS: BP 146/77; PULSE 66; RESP 18; TEMP 36.8; O2SAT 100; BMI 21.6
[2022-03-19 09:43] VITALS: BP 148/83; PULSE 76; RESP 21; O2SAT 92
[2022-03-19 09:53] VITALS: BP 137/75; PULSE 82; RESP 16; O2SAT 95
[2022-03-19 09:53] LABS: Basophils # 0.1 10^3/uL (0.0-0.1); Basophils % 1.4 %; Eosinophils # 0.1 10^3/uL (0.0-0.8); Eosinophils % 2.1 %; Hematocrit 39.7 % (42.0-52.0); Hemoglobin 13.5 g/dL (11.7-16.6); Lymphocytes # 1.4 10^3/uL (0.8-4.8); Mean Corpuscular Hemoglobin 31.8 pg (28.0-34.0); Mean Corpuscular Volume 93.6 fl (80-94); Mean Platelet Volume 9.5 fL (7.4-10.4); Monocytes # 0.7 10^3/uL (0.2-0.9); Monocytes % 10.6 %; Neutrophils # 4.02 10^3/uL (1.8-7.7); Neutrophils % 63.6 %; Nucleated Red Blood Cells % 0 %; Platelet Count 301 10^3/cmm (130-400); Red Blood Count 4.24 10^6/uL (4.1-5.3); Red Cell Distribution Width 13.8 % (12.1-15.1); White Blood Count 6.3 10^3/uL (4.0-10.0)
--- NOTE | 2022-03-19 09:56 | ED_ITS ---
HPI - Dizziness General: Chief Complaint: Dizziness Stated Complaint: dizzy Time Seen by Provider: 03/19/22 09:13 Source: patient Mode of arrival: ambulatory Limitations: no limitations History of Present Illness: HPI Narrative: 61-year-old male presents emergency room complaining of dizziness intermittently for the last week feels like he is can a pass out at times. He denies any chest pain he has not had any shortness of breath associated no fever sweats chills congestion no upper respiratory symptoms no abdominal pain. No hematochezia melena hematemesis coffee-ground emesis. MD elicited complaint: dizziness, lightheadedness and near syncope Onset (ago): week(s) Timing: sudden onset Severity: mild Description: lightheadedness and off-balance Context: change in body position Exacerbating factors: change in body position Relieving factors: remaining still and rest Associated symptoms: Reports chest pain (Mild chest discomfort), malaise, nausea and weakness; Denies change in hearing, chills, cough, diaphoresis, ear discharge, ear pressure, fevers/chills, headache(s), nasal congestion, palpitations, rash, sh ort of breath, syncope, tinnitus or vomiting Review of Systems Const: Reports: malaise; Denies: fever(s), chills, fatigue or diaphoresis ENMT: Denies: ear discharge, change in hearing, tinnitus or nasal congestion Card: Reports: chest pain (Mild chest discomfort); Denies: palpitations or syncope Resp: Denies: dyspnea, productive cough or non-productive cough GI: Reports: nausea; Denies: abdominal pain or vomiting : Denies: flank pain, difficulty urinating, dysuria, urinary frequency or urinary urgency Skin/Breast: Denies: rash or pruritus Neuro: Denies: headache(s) PFSH ED PFSH: Medical History Major depression, recurrent, full remission Psychiatric care Social History Smoking and tobacco status: current every day smoker (1 ppd) cigarettes Packs smoked per day: 1.5 Years cigarettes smoked: 40 [ Other cigarette details: started at age 18] Second hand smoke exposure: Yes Smoking risk assessment/counseling performed?: Yes Alcohol intake: former Counseling given: No Counseling given: No Lives independently: Yes Household members: none Marital status: Single Current occupational status: disabled History of recent travel: No Current gender identity: Male Physical Exam Const: COMMON NORMALS: no acute distress GENERAL APPEARANCE: cooperative and comfortable ORIENTATION/CONSCIOUSNESS: Yes awake, Yes oriented to person, Yes oriented to place and Yes oriented to time HENMT: COMMON NORMALS: normocephalic, atraumatic, hearing grossly normal bilaterally, external ears normal, EAC's normal, TM's normal bilaterally, Normal nasal mucous membranes and turbinates present, moist oral mucous membranes and oropharynx normal HEAD & SCALP: normocephalic and atraumatic NOSE: Normal nasal mucous membranes and turbinates present EXTERNAL EAR: Yes external ears normal EXTERNAL AUDITORY CANAL: EAC's normal TYMPANIC MEMBRANE: TM's normal bilaterally Eye: COMMON NORMALS: Equal, round and reactive pupils present, EOMs intact bilaterally, conjunctivae normal and no scleral icterus CONJUNCTIVA: Yes conjunctivae normal PUPIL: Yes Equal, round and reactive pupils present Neck/C-Spine: COMMON NORMALS: full ROM, no lymphadenopathy, supple and no JVD Resp: COMMON NORMALS: normal respiratory effort, No retractions, No use of accessory muscles and clear to auscultation bilaterally AUSCULTATION: clear to auscultation bilaterally Cardio: COMMON NORMALS: no JVD, regular rate, regular rhythm and No murmurs present (Cardio) RATE: regular rate RHYTHM: regular rhythm GI: COMMON NORMALS: Soft to palpation and No hepatosplenomegaly present AUSCULTATION: Yes normoactive bowel sounds PALPATION: Yes Soft to palpation, No Tenderness to palpation present (GI), No Guarding due to palpation present (GI) and Yes No hepatosplenomegaly present Extremity: COMMON NORMALS: normal to inspection, capillary refill normal, no clubbing, cyanosis or edema, no calf tenderness and no pedal edema Neuro: SENSORIUM/ORIENTATION: Yes oriented to person, Yes oriented to place and Yes oriented to time Skin: COMMON NORMALS: no rashes or lesions noted GENERAL SKIN EXAM: no rashes or lesions noted Course Vital Signs: Vital signs: Vital Signs Temperature 98.3 F 03/19/22 09:23 Pulse Rate 82 03/19/22 11:45 Respiratory Rate 16 03/19/22 11:45 Blood Pressure 112/68 03/19/22 11:45 Pulse Oximetry 95 03/19/22 11:45 Oxygen Delivery Me thod 03/19/22 11:45 MDM - Dizziness Medical Decision Making Labs imaging and EKG reviewed. Patient is up and ambulatory doing well but discharge patient home set him up for an outpatient echocardiogram follow-up with primary care return if has further problems. Medical Records I reviewed the patient's medical records. Lab Data I reviewed the patient's lab results. : 03/19/22 09:30 03/19/22 09:30 Laboratory Results WBC 6.3 10^3/uL (4.0-10.0) 03/19/22 09:30 RBC 4.24 10^6/uL (4.1-5.3) 03/19/22 09:30 Hgb 13.5 g/dL (11.7-16.6) 03/19/22 09:30 Hct 39.7 % (42.0-52.0) L 03/19/22 09:30 MCV 93.6 fl (80-94) 03/19/22 09:30 MCH 31.8 pg (28.0-34.0) 03/19/22 09:30 MCHC 34.0 g/dL (30.0-36.0) 03/19/22 09:30 RDW 13.8 % (12.1-15.1) 03/19/22 09:30 Plt Count 301 10^3/cmm (130-400) 03/19/22 09:30 MPV 9.5 fL (7.4-10.4) 03/19/22 09:30 Neut % (Auto) 63.6 % 03/19/22 09:30 Lymph % (Auto) 22.0 % 03/19/22 09:30 [place] % (Auto) 10.6 % 03/19/22 09:30 Eos % (Auto) 2.1 % 03/19/22 09:30 Baso % (Auto) 1.4 % 03/19/22 09:30 Neut # (Auto) 4.02 10^3/uL (1.8-7.7) 03/19/22 09:30 Lymph # (Auto) 1.4 10^3/uL (0.8-4.8) 03/19/22 09:30 [place] # (Auto) 0.7 10^3/uL (0.2-0.9) 03/19/22 09:30 Eos # (Auto) 0.1 10^3/uL (0.0-0.8) 03/19/22 09:30 Baso # (Auto) 0.1 10^3/uL (0.0-0.1) 03/19/22 09:30 Nucleated RBC % (auto) 0 % 03/19/22 09:30 Nucleated RBCs # 0.0 /100WBC 03/19/22 09:30 Sodium 131 mmol/L (136-145) L 03/19/22 09:30 Potassium 4.2 mmol/L (3.5-5.1) 03/19/22 09:30 Chloride 92 mmol/L (98-107) L 03/19/22 09:30 Carbon Dioxide 29 mmol/L (22-29) 03/19/22 09:30 Anion Gap 14.2 (5-19) 03/19/22 09:30 BUN 4 mg/dL (6-20) L 03/19/22 09:30 Creatinine 0.7 mg/dL (0.7-1.2) 03/19/22 09:30 GFR Calculation 115.4 mL/min (90-130) 03/19/22 09:30 Glucose 90 mg/dL (65-115) 03/19/22 09:30 Calculated Osmolality 268 mOsm/kg (285-295) L 03/19/22 09:30 Calcium 9.5 mg/dL (8.5-10.5) 03/19/22 09:30 Discharge Plan Discharge Patient Disposition: Home Clinical Impression: Near syncope Condition: Stable Prescriptions: No Action loratadine [Claritin] 10 mg tablet 10 mg PO DAILY fluticasone propionate 50 mcg/actuation spray,suspension 1 spray INTRANASAL BID albuterol sulfate 2.5 mg /3 mL (0.083 %) solution for nebulization 2.5 mg inhalation Q4H PRN (Reason: Shortness Of Breath) Seroquel XR 150 mg tablet extended release 24 hr 150 mg PO BEDTIME Qty: 30 11RF Spiriva with HandiHaler 18 mcg capsule, w/inhalation device 1 cap inhalation DAILY 30 Days Qty: 30 4RF Rx Instructions: puncture 1 cap using device; one dose = 2 inhalations Voltaren 1 % gel 4 g topical QID Qty: 100 0RF Rx Instructions: apply to single knee, ankle, foot; for foot includes sole/toes/top of foot fluticasone propion-salmeterol [Advair Diskus] 250-50 mcg/dose Blister With Device 1 inh INHALATION BID meloxicam [Mobic] 15 mg Tablet 15 mg PO DAILY omeprazole 20 mg Capsule,Delayed Release(Dr/Ec) 20 mg PO DAILY albuterol sulfate [ProAir HFA] 90 mcg/actuation Hfa Aerosol Inhaler 2 puff inhalation Q4H PRN (Reason: Shortness Of Breath) ibuprofen 200 mg Tablet 800 mg PO PRN Singulair 10 mg Tablet 10 mg PO DAILY Discharge Orders: Discharge ED (Routine); Ordered 03/19/22 Ordered By: Nishant Shine Referrals: Gail Callaway MD [Primary Care Provider] - Activity Restrictions/Additional Instructions: Avoid exertional activities. Follow-up with your doctor next week. Case management make arrangements for you to have an outpatient echocardiogram. Coding Level of Care Code ED Chemical Sales Representative for Chg Fwd Exam Comprehensive
[2022-03-19 10:13] LABS: Blood Urea Nitrogen 4 mg/dL (6-20); Calcium 9.5 mg/dL (8.5-10.5); Carbon Dioxide 29 mmol/L (22-29); Chloride 92 mmol/L (98-107); Glomerular Filtration Rate 115.4 mL/min (90-130); Glucose 90 mg/dL (65-115); Osmolality Calculated 268 mOsm/kg (285-295); Sodium 131 mmol/L (136-145)
[2022-03-19 10:22] LABS: Anion Gap 14.2 (5-19)
[2022-03-19 10:23] LABS: Potassium 4.2 mmol/L (3.5-5.1)
[2022-03-19 10:54] VITALS: BP 123/79; PULSE 89; RESP 18; O2SAT 99
[2022-03-19 11:45] VITALS: BP 112/68; PULSE 82; RESP 16; O2SAT 95
--- NOTE | 2022-03-23 11:51 | DCPLANNER ---
Addendum entered by Maisha Thompson 05/05/22 07:31: Patient had an echo scheduled for 05.02.22 - patient did not attend appointment. Addendum entered by Maisha Thompson 04/14/22 16:20: Patient has an echo scheduled for Monday, May 02, 2022 at 8:45, centralized scheduling will call patient with appointment information. Original Note: bowling alley manager had message to schedule an outpatient echo cardiogram for patient. bowling alley manager faxed signed order to centralized scheduling, who will call patient with appointment information.
== END 2022-03-19 12:09 | disposition home or self-care (01) ==
PROVIDERS: Emergency Provider Family Medicine; PCP Internal Medicine
DX: R55 Syncope and collapse (principal); F17.210 Nicotine dependence, cigarettes, uncomplicated
CPT/HCPCS: 80048; 85025; 93005; 99284

== ENCOUNTER → 2022-05-16 08:16 | Outpatient (BNVA) | payer MEDICAID, SELFPAY | PROVIDERS: PCP Internal Medicine; Visit Provider Internal Medicine Critical Care Medicine | DX: J43.9 Emphysema, unspecified (principal); J30.9 Allergic rhinitis, unspecified; F17.210 Nicotine dependence, cigarettes, uncomplicated | CPT/HCPCS: 99214 ==

== ENCOUNTER 2022-07-08 07:51 | Outpatient (CLI) | payer MEDICAID, SELFPAY ==
--- NOTE | 2022-07-08 | CT_ITS ---
WS: [id number] LDCT LUNG CANCER SCREENING HISTORY: SCREENING TECHNIQUE: Axial imaging performed from the apices to 1 cm below the costophrenic angles. Coronal and sagittal reformats are submitted with axial MIP series. All CT scans at [facility] use at least one of these dose optimization techniques: automated exposure control; mA and/or kV adjustment per patient size (includes targeted exams where dose is matched to clinical indication); or iterativ e reconstruction. DLP: 83.70 mGy.cm DIvol: Mean CTDIvol: 1.60 (mGy) COMPARISON: 06/14/2022 Diagnostic quality: Satisfactory Lung Nodules: No nodule or endobronchial lesion. Lungs: Chronic emphysema with hyperexpansion. Heart: Normal size heart. No pericardial effusion. Mild coronary artery calcification. Other findings: Mild atherosclerosis aorta. Small hiatal hernia. CT/CT lung screening [id number] IMPRESSION: LUNG-RADS: 1-Negative FOLLOW UP: 12 Month: Continue annual screening with LDCT OTHER FINDINGS (S MODIFIER): None.
== END 2022-07-08 07:52 | disposition home or self-care (01) ==
LOC: RAD 07:53
PROVIDERS: PCP Internal Medicine; Visit Provider Internal Medicine Critical Care Medicine
DX: Z12.2 Encounter for screening for malignant neoplasm of respiratory organs (principal); F17.210 Nicotine dependence, cigarettes, uncomplicated
CPT/HCPCS: 71271

== ENCOUNTER → 2022-10-20 08:00 | Outpatient (BNVA) | payer MEDICAID, SELFPAY | PROVIDERS: PCP Internal Medicine; Visit Provider Podiatrist Foot & Ankle Surgery | DX: L60.3 Nail dystrophy (principal); L60.0 Ingrowing nail | CPT/HCPCS: 11750; 99203 ==

== ENCOUNTER → 2022-11-03 11:26 | Outpatient (BNVA) | payer MEDICAID, SELFPAY | PROVIDERS: PCP Internal Medicine; Visit Provider Podiatrist Foot & Ankle Surgery | DX: L60.0 Ingrowing nail (principal) | CPT/HCPCS: 99213 ==

== ENCOUNTER → 2023-05-08 10:10 | Outpatient (BNVA) | payer MEDICAID, SELFPAY | PROVIDERS: PCP Internal Medicine; Visit Provider Podiatrist Foot & Ankle Surgery | DX: L30.9 Dermatitis, unspecified (principal); L60.0 Ingrowing nail | CPT/HCPCS: 99213 ==

== ENCOUNTER 2023-11-03 09:30 | Outpatient (CLI) | payer MEDICAID, SELFPAY ==
--- NOTE | 2023-11-03 09:34 | CT_ITS ---
WS: [id number] LDCT LUNG CANCER SCREENING TECHNIQUE: Noncontrast CT of the chest with coronal and sagittal reformatted images. CLINICAL INFORMATION: NICOTINE DEPENDENCE, CIGARETTES COMPARISON: CT 07/08/2022 DLP: 64.77 mGy.cm DIvol: Mean CTDIvol: 1.10 (mGy) All CT scans at [facility] use at least one of these dose optimization techniques: automat ed exposure control; mA and/or kV adjustment per patient size (includes targeted exams where dose is matched to clinical indication); or iterative reconstruction. FINDINGS: Moderate chronic emphysematous changes. Fibrosis in the lung apices. No suspicious pulmonar y parenchymal abnormalities. Normal caliber thoracic aorta. Aortic calcification. Coronary calcification. No mediastinal or hilar lymphadenopathy. No axillary lymphadenopathy. Small esophageal hiatal hernia. Adrenal glands are normal. Partially visualized LEFT hydronephrosis. This appears progressed compared to 07/08/2022. Recommend further evaluation with CT abdomen pelvis. Mild thoracic curve. IMPRESSION: Partially visualized moderate LEFT hydronephrosis. Recommend further evaluation with CT a bdomen pelvis. CT/CT lung screening 07200 LUNG-RADS: 1S-Negative with Significant Findings FOLLOW UP: 12 Month: Continue annual screening with LDCT
== END 2023-11-03 09:31 | disposition home or self-care (01) ==
LOC: RAD 09:30
PROVIDERS: PCP Internal Medicine; Visit Provider Internal Medicine
DX: Z12.2 Encounter for screening for malignant neoplasm of respiratory organs (principal); F17.218 Nicotine dependence, cigarettes, with other nicotine-induced disorders; J43.9 Emphysema, unspecified; J84.10 Pulmonary fibrosis, unspecified
CPT/HCPCS: 71271

== ENCOUNTER 2023-11-29 09:31 | Outpatient (CLI) | payer MEDICAID, SELFPAY ==
--- NOTE | 2023-11-29 09:38 | CT_ITS ---
WS: [id number] CT ABDOMEN PELVIS TECHNIQUE: Contrast-enhanced CT of the abdomen and pelvis with coronal and sagittal reformatted image s. Delayed images performed CLINICAL INFORMATION: LEFT HYDRONEPHROSIS COMPARISON: CT 2019 DLP: 474.[address] scans at [facility] use at least one of these dose optimization techniques: automated e xposure control; mA and/or kV adjustment per patient size (includes targeted exams where dose is matc hed to clinical indication); or iterative reconstruction. FINDINGS: Lobulated markedly distended urinary bladder extending into the abdomen likely due to bladder outlet obstruction. Enlarged calcified prostate measuring 4.2 x 5.1 cm. Recommend correlation PSA. Moderate LEFT hydronephrosis with distention of the LEFT renal pelvis. LEFT ureterectasis extending into the d istal ureter. No significant hydronephrosis in the RIGHT kidney. Mild RIGHT ureterectasis. Lung bases are well aerated. Small esophageal hernia. Normal liver. Normal portal vein and splenic ve in. Normal pancreatic parenchymal enhancement. Normal spleen. Celiac and SMA are patent. Gallbladder is contracted. Normal caliber abdominal aorta. Aortic calcification. Adrenal glands are normal. Disc space narrowing L4-L5 and L5-S1. IMPRESSION: 1. Moderate LEFT hydronephrosis with ureterectasis. Markedly distended and lobulated urinary bladder extending into the abdomen likely due to bladder outlet obstruction with enlarged prostate. 2. No significant RIGHT hydronephrosis. Mild RIGHT ureterectasis. 3. Calcified enlarged prostate measures 4.2 x 5.1 cm. Recommend correlation PSA. 4. No significant hydronephrosis in the RIGHT kidney. 5. Small esophageal hernia. 6. No other acute findings.
[2023-11-29] MEDS: iohexol 350 mg/mL 500 mL Btl (per mL) IV (10:04)
== END 2023-11-29 09:32 | disposition home or self-care (01) ==
LOC: RAD 09:31
PROVIDERS: PCP Internal Medicine; Visit Provider Internal Medicine
DX: N13.30 Unspecified hydronephrosis (principal); N40.0 Benign prostatic hyperplasia without lower urinary tract symptoms; K44.9 Diaphragmatic hernia without obstruction or gangrene
CPT/HCPCS: 74177; Q9967

== ENCOUNTER 2025-01-21 09:33 | Outpatient (CLI) | payer MEDICAID, SELFPAY ==
--- NOTE | 2025-01-21 09:40 | CT_ITS ---
WS: [id number] LDCT LUNG CANCER SCREENING HISTORY: HX OF TOBACCO USE TECHNIQUE: Axial imaging performed from the apices to 1 cm below the costophrenic angles. Coronal and sagittal reformats are submitted with axial MIP series. All CT scans at [facility] use at least one of these dose optimization techniques: automated exposure control; mA and/or kV adjustment per patient size (includes targeted exams where dose is matched to clinical indication); or iterative reconstruction. DLP: 48.79 mGy.cm DIvol: Mean CTDIvol: 0.80 (mGy) COMPARISON: 11/03/2023, 11/29/2023 Diagnostic quality: Satisfactory Lungs: Mild hyperexpansion. No pulmonary mass or nodule. No pneumonia. No endobronchial lesions. Heart: Normal size heart with no pericardial effusion.. Other findings: Moderate hiatal hernia. No mediastinal or hilar adenopathy. Mild atherosclerosis aorta. No adrenal mass. Mild dilatation LEFT renal pelvis. This has been previously described and evaluated by CT from 11/29/2023. The extent of hydronephrosis appears improved but persists. CT/CT lung screening [id number] IMPRESSION: LUNG-RADS: 1-Negative FOLLOW UP: 12 Month: Continue annual screening with LDCT OTHER FINDINGS (S MODIFIER): None.
== END 2025-01-21 09:34 | disposition home or self-care (01) ==
PROVIDERS: PCP Internal Medicine; Visit Provider Internal Medicine
DX: Z12.2 Encounter for screening for malignant neoplasm of respiratory organs (principal); Z87.891 Personal history of nicotine dependence; R91.8 Other nonspecific abnormal finding of lung field; K44.9 Diaphragmatic hernia without obstruction or gangrene; I70.0 Atherosclerosis of aorta; N28.89 Other specified disorders of kidney and ureter
CPT/HCPCS: 71271